=== PATIENT | male | born 1955 | race Caucasian/White ===

== ENCOUNTER 2020-01-08 13:08 | Inpatient (IN) | payer OTHER ==
--- NOTE | 2020-01-08 13:55 | BHS.RME ---
Substance Use & Tx History - Substance Use History Alcohol Substance amount: 2 pints bacardi Frequency of use: Daily Substance route: Oral Date of Last Use: 01/08/20 Marijuana/Hashish Substance amount: 1 joint Frequency of use: Daily Substance route: Smoking Date of Last Use: 01/07/20 Nicotine Substance amount: 1/2 pack Frequency of use: Daily Substance route: Smoking Date of Last Use: 01/08/20 Physical/Psych/Mental Status - Behavior General Behavior: Increased activity (restlessness, agitation) Eye Contact: Normal - Cooperativeness Cooperativeness: Cooperative - Thinking Thought Processes: Tight, Logical, Goal Directed Thought content: Future oriented - Physical Health Problems Is patient presently having any pain?: No Does patient presently have any injuries (include location): No Does patient currently have a fever: No Is patient : No CIWA Nausea/Vomitin-No Nausea/No Vomiting Muscle Tremors: 1-None Visible, but [place] Anxiety: 4-Mod. Anxious/Guarded Agitation: 3 Paroxysmal Sweats: No Perspiration Orientation: 1-Uncertain about Date Tacttile Disturbances: 0-None Auditory Disturbances: 0-None Visual Disturbances: 0-None Headache: 3-Moderate CIWA-Ar Total Score: 12
--- NOTE | 2020-01-08 16:06 | HP ---
CIWA Score Nausea/Vomitin-No Nausea/No Vomiting Muscle Tremors: 1-None Visible, but [place] Anxiety: 4-Mod. Anxious/Guarded Agitation: 3 Paroxysmal Sweats: No Perspiration Orientation: 1-Uncertain about Date Tacttile Disturbances: 0-None Auditory Disturbances: 0-None Visual Disturbances: 0-None Headache: 3-Moderate CIWA-Ar Total Score: 12 - Admission Criteria OASAS Guidelines: Admission for Medically Managed Detox: Requires at least one of the followin. CIWA greater than 12 2. Seizures within the past 24 hours 3. Delirium tremens within the past 24 hours 4. Hallucinations within the past 24 hours 5. Acute intervention needed for co occurring medical disorder 6. Acute intervention needed for co occurring psychiatric disorder 7. Severe withdrawal that cannot be handled at a lower level of care (continued vomiting, continued diarrhea, abnormal vital signs) requiring intravenous medication and/or fluids 8. Admitting History and Physical - Admission History of Present Illness: Patient is a 64 y.o. M PMHx HTN, rectal CA, asthma Presenting to [facility] for detox. Patient was examined in the room in no acute distress. 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 Pt. also uses marijuana 1 joint per day and nicotine 1/2 pack a day. 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 No: Hyperlipdemia - Past Surgical History Past Surgical History: Yes: Joint Replacement (R total knee,) - Smoking History Smoking history: Current every day smoker Have you smoked in the past 12 months: Yes Aproximately how many cigarettes per day: 10 - Alcohol/Substance Use Hx Alcohol Use: Yes Number of Drinks Daily: 2 History of Substance Use: reports: Marijuana - Social History Usual Living Arrangement: Yes: Alone ADL: Independent History of Recent Travel: No Admission ROS S - HPI Allergies/Adverse Reactions: Allergies Allergy/AdvReac Type Severity Reaction Status Date / Time No Known Allergies Allergy Verified 01/09/20 15:30 Exam Limitations: No Limitations - Ebola screening Have you traveled outside of the country in the last 21 days: No Have you had contact with anyone from an Ebola affected area: No Have you been sick,other than usual withdrawal symptoms: No Do you have a fever: No - Review of Systems Constitutional: No Symptoms Reported EENT: denies: Blurred Vision, Double Vision Respiratory: reports: SOB with Exertion. denies: Cough, Shortness of Breath Cardiac: denies: Chest Pain, Lightheadedness GI: reports: Constipated. denies: Diarrhea, Nausea, Vomiting Integumentary: reports: Rash Psychiatric: reports: No Sypmtoms Reported, Judgement Intact, Mood/Affect Appropiate, Orientated x3 Patient History - Smoking Cessation Smoking history: Current every day smoker Hx Chewing Tobacco Use: No Initiated information on smoking cessation: Yes 'Breaking Loose' booklet given: 01/08/20 - Substances abused Alcohol Substance route: Oral Frequency: Daily Amount used: 2 PINTS RUM Age of first use: 8 Date of last use: 01/08/20 Marijuana/Hashish Substance route: Smoking Frequency: Daily Amount used: 1 JOINT Age of first use: 13 Date of last use: 01/07/20 Admission Physical Exam [facility] Physical General Appearance: Yes: Within Normal Limits, No Apparent Distress, Nourished, Appropriately Dressed Respiratory: Yes: Within Normal Limits, Chest Non-Tender, Lungs Clear, Normal Breath Sounds, No Respiratory Distress, No Accessory Muscle Use Cardiology: Yes: Within Normal Limits, Regular Rhythm, Regular Rate Abdominal: Yes: Within Normal Limits, Normal Bowel Sounds, Non Tender, Soft Extremities: Yes: Within Normal Limits, Normal Capillary Refill, Normal Inspection, Non-Tender Neurological: Yes: Within Normal Limits, Fully Oriented, Alert, Normal Mood/Affect, Normal Response Integumentary: Yes: Within Normal Limits, Normal Color - Diagnostic (1) Alcohol abuse Current Visit: Yes Status: Acute (2) Alcohol abuse with alcohol-induced anxiety disorder Current Visit: Yes Status: Acute (3) Hypertension Current Visit: Yes Status: Acute (4) Asthma Current Visit: Yes Status: Acute Cleared for Admission [facility] - Detox or Rehab B[facility] Level of Care: Medically Managed Detox Regimen/Protocol: Librium, Suboxone Breathalyzer - Breathalyzer Breathalyzer: 0 Vital Signs - Vital Signs Vital signs refused: No Urine Drug Screen - Test Device Lot number: [id number] Expiration date: 12/14/21 - Control Is test valid?: Yes - Results Drug screen NEGATIVE: No Urine drug screen results: THC-Marijuana, BUP-Suboxone Inpatient Rehab Admission - Rehab Decision to Admit Inpatient rehab admission?: No
[2020-01-08 16:18] VITALS: BMI 24.6
[2020-01-08] MEDS ORDERED: MAG HYDROX/AL HYDROX/SIMETH 30 ML UNIT-DOSE CUP PO PRN (16:20)
[2020-01-08] MEDS ORDERED: IBUPROFEN 400 MG TABLET (FP) PO PRN (16:20)
[2020-01-08] MEDS ORDERED: MENTHOL/PHENOL 1 EACH UD MM PRN (16:20)
[2020-01-08] MEDS ORDERED: NICOTINE POLACRILEX 2 MG GUM BUC PRN (16:20)
[2020-01-08] MEDS ORDERED: ACETAMINOPHEN 325 MG TABLET (FP) PO PRN ×2 (16:20)
[2020-01-08] MEDS ORDERED: chlordiazePOXIDE HCL 25 MG CAPSULE PO PRN (16:20)
[2020-01-08] MEDS ORDERED: METHOCARBAMOL 500 MG TABLET PO PRN (16:20)
[2020-01-08] MEDS ORDERED: MAGNESIUM CITRATE 300 ML BOTTLE PO PRN (16:20)
[2020-01-08] MEDS ORDERED: BISMUTH SUBSALICYLATE 524 MG/30 ML UD PO PRN (16:20)
[2020-01-08] MEDS ORDERED: MAGNESIUM HYDROX 2400MG/30ML ORAL SUSPENSION 30 ML CUP PO PRN (16:20)
[2020-01-08] MEDS ORDERED: ACETAMINOPHEN 500 MG TABLET (FP) PO PRN (16:24)
[2020-01-08] MEDS ORDERED: ALBUTEROL SO4 HFA INHALER IH PRN (16:24)
[2020-01-08] MEDS ORDERED: ONDANSETRON *ODT* 4 MG TABLET SL ONE (17:00)
[2020-01-08] MEDS: chlordiazePOXIDE HCL 25 MG CAPSULE PO SCH ×2 (17:55→22:25)
[2020-01-08] MEDS: hydrOXYzine PAMOATE 25 MG CAPSULE (FP) PO SCH ×2 (18:00→22:25)
[2020-01-08] MEDS: MELATONIN 5 MG TABLETS PO SCH (22:23)
[2020-01-08] MEDS: THIAMINE HCL 100 MG TABLET (FP) PO SCH (22:23)
[2020-01-08] MEDS: traZODone HCL 50 MG TABLET (FP) PO SCH (22:23)
[2020-01-08] MEDS: BUDESONIDE/FORMETEROL FUMARATE 80/4.5 mcg INHALER IH SCH (22:24)
[2020-01-08] MEDS: ARTIFICIAL TEARS (POLYVINYL ALCOHOL) OPTH DROPS OU SCH (22:28)
[2020-01-09] MEDS: hydrOXYzine PAMOATE 25 MG CAPSULE (FP) PO SCH ×5 (05:41→23:26)
[2020-01-09] MEDS: chlordiazePOXIDE HCL 25 MG CAPSULE PO SCH ×4 (05:41→23:26)
--- NOTE | 2020-01-09 09:50 | PN ---
S CIWA - CIWA Score Nausea/Vomitin-No Nausea/No Vomiting Muscle Tremors: 2 Anxiety: 3 Agitation: 0-Normal Activity Paroxysmal Sweats: 3 Orientation: 0-Oriented Tacttile Disturbances: 0-None Auditory Disturbances: 0-None Visual Disturbances: 0-None Headache: 2-Mild CIWA-Ar Total Score: 10 BHS Progress Note (SOAP) Subjective: c/o headache, anxiety, sweats, and shakes. Objective: 01/09/20 09:49 Vital Signs 01/09/20 01/09/20 06:59 08:52 Temperature 98.2 F 96.8 F L Pulse Rate 81 76 Respiratory 16 18 Rate Blood Pressure 141/77 125/75 O2 Sat by Pulse 93 L Oximetry (%) Labs pending. Assessment: 01/09/20 09:50 AOX3, in no acute respiratory distress. Full ROM, ambulating in the unit. Withdrawal symptoms. Plan: continue detox.
--- NOTE | 2020-01-09 10:34 | CONSULT ---
[facility] Psychiatric Consult - Data Date of interview: 01/09/20 Admission source: [facility] Identifying data: First visit to [facility] and admission to [address] [place] [address] for this 64 y/o male self-referred for detoxification treatment. YOLANDA issues : alcohol, cannabis, opioid, nicotine. Patient is single, no dependents, domiciled, unemployed and suppported on his halfway benefits. Substance Abuse History: Discussed with the patient. YOLANDA profile as follows : Substance Use History. Alcohol. Substance amount: 2 pints bacardi. Frequency of use: Daily. Substance route: Oral. Date of Last Use: 01/08/20. Marijuana/Hashish. Substance amount: 1 joint. Frequency of use: Daily. Substance route: Smoking. Date of Last Use: 01/07/20. Nicotine. Substance amount: 1/2 pack. Frequency of use: Daily. Substance route: Smoking. Date of Last Use: 01/08/20. Limitations to Obtaining History: No Limitations. Substances abused. Alcohol. Substance route: Oral. Frequency: Daily. Amount used: 2 PINTS RUM. Age of first use: 8. Date of last use: 01/08/20. Marijuana/Hashish. Substance route: Smoking. Frequency: Daily. Amount used: 1 JOINT. Age of first use: 13. Date of last use: 01/07/20. Medical History: Medical profile is remarkable for bronchial asthma, dyslipidemia, hypertension, antecedent of multiple surgeries : total knee replacement (right) + past intervention for peptic ulcer disease (self-report) + colorectal cancer (surgery done four years ago at [facility]). No known allergies. Psychiatric History: Patient denies history of psychiatric hospitalizations. He has beeen diagnosed with MDD and he reports to the [facility] [place] mental health clinic for OPD care. Mr Vides is currently on suboxone maintenance + lexapro. Patient denies history of suicide attempts. Physical/Sexual Abuse/Trauma History: Patient denies history of abuse. Additional Comment: Urine drug screen results: THC-Marijuana, BUP-Suboxone. Noted. Mental Status Exam - Mental Status Exam Alert and Oriented to: Time, Place, Person Cognitive Function: Good Patient Appearance: Well Groomed Mood: Nervous, Hopeful Affect: Appropriate, Normal Range Patient Behavior: Fatigued, Appropriate, Cooperative Speech Pattern: Clear, Appropriate Voice Loudness: Normal Thought Process: Intact, Goal Oriented Thought Disorder: Not Present Hallucinations: Denies Suicidal Ideation: Denies Homicidal Ideation: Denies Insight/Judgement: Fair Sleep: Poorly, Difficulty falling asleep Appetite: Good Gait/Station: Normal Psychiatric Findings - Problem List ([place] 1, 2,3) (1) Alcohol use disorder Current Visit: Yes Status: Chronic (2) Opioid dependence on agonist therapy Current Visit: Yes Status: Chronic (3) Marijuana dependence Current Visit: Yes Status: Chronic (4) Nicotine dependence Current Visit: Yes Status: Chronic (5) History of depression Current Visit: Yes Status: Chronic (6) Substance induced mood disorder Current Visit: Yes Status: Suspected (7) Insomnia Current Visit: Yes Status: Chronic - Initial Treatment Plan Initial Treatment Plan: Psychoeducation. Sleep hygiene. Support. Detoxification in progress. Resumed on admission, by [facility] medical providers : trazodone 50 mg po hs + lexapro 20 mg po daily. Side effects/benefits of these molecules are revisited with the patient (in this interview). Mr Vides grants consent (verbal) to MD. Vergara.
[2020-01-09] MEDS: ARTIFICIAL TEARS (POLYVINYL ALCOHOL) OPTH DROPS OU SCH ×2 (10:49→23:25)
[2020-01-09] MEDS: PRENATAL VITAMINS W/ FOLIC ACID TABLET (FP) PO SCH (10:50)
[2020-01-09] MEDS: amLODIPine BESYLATE 10 MG TABLET (FP) PO SCH (10:50)
[2020-01-09] MEDS: NICOTINE 7 MG/24 HOURS TOPICAL PATCH TD SCH (10:50)
[2020-01-09] MEDS: BUDESONIDE/FORMETEROL FUMARATE 80/4.5 mcg INHALER IH SCH ×2 (10:50→23:26)
[2020-01-09] MEDS: ESCITALOPRAM OXALATE 10 MG TABLET PO SCH (10:50)
[2020-01-09] MEDS: BUPRENORPHINE/NALOXONE 8 MG/2 MG FILM PACKET SL SCH (10:50)
[2020-01-09 12:28] LABS: HEMATOCRIT 37.8 % (35.4-49); HEMOGLOBIN 12.8 GM/dL (11.7-16.9); MCHC 33.7 g/dl (32.0-35.9); MEAN CELL VOLUME 103.7 fl (80-96); PLATELET COUNT 64 K/MM3 (134-434); RBC 3.65 M/mm3 (4.00-5.60); RDW 12.6 % (11.9-15.9); WHITE BLOOD COUNT 4.5 K/mm3 (4.0-10.0)
[2020-01-09 12:40] LABS: ALBUMIN 2.9 g/dl (3.4-5.0); BLOOD UREA NITROGEN 11.1 mg/dL (7-18); CALCIUM 8.9 mg/dL (8.5-10.1); CREATININE 0.8 mg/dL (0.55-1.3); POTASSIUM 3.8 mmol/L (3.5-5.1); TOT PROT 7.5 g/dl (6.4-8.2)
--- NOTE | 2020-01-09 14:40 | PN ---
[facility] Progress Note Note: I was called to see this 64year old male with serum glucose of 412mg/dl. Pt was seen at bedside with c/o weakness. Denies any sob, dry mouth, or n/v at the moment. BGM is 537mg/dl. Pt states, he has no history of diabetes. Pt will benefit from iv hydration and further evaluation of hyperglycemia. Pt is sent to [facility] ED for evaluation. Verbal report given to Dr. Eubanks.
[2020-01-09] MEDS: traZODone HCL 50 MG TABLET (FP) PO SCH (23:26)
[2020-01-09] MEDS: THIAMINE HCL 100 MG TABLET (FP) PO SCH (23:26)
[2020-01-09] MEDS: MELATONIN 5 MG TABLETS PO SCH (23:26)
--- NOTE | 2020-01-09 23:50 | PN ---
[facility] Progress Note Note: Patient was received from Er where he was evaluated for elevated blood sugar and was cleared to continue detox. As per Dr. Prince Robin, patient is to initiate Metformin 500mg BID. Vital Signs Temperature 98.6 F 01/09/20 23:33 Pulse Rate 77 01/09/20 23:33 Respiratory Rate 18 01/09/20 23:33 Blood Pressure 150/81 01/09/20 23:33 O2 Sat by Pulse Oximetry (%) 95 01/09/20 23:33 Laboratory Last Values WBC 4.5 K/mm3 (4.0-10.0) 01/09/20 07:50 RBC 3.65 M/mm3 (4.00-5.60) L 01/09/20 07:50 Hgb 12.8 GM/dL (11.7-16.9) 01/09/20 07:50 Hct 37.8 % (35.4-49) 01/09/20 07:50 MCV 103.7 fl (80-96) H 01/09/20 07:50 MCH 35.0 pg (25.7-33.7) H 01/09/20 07:50 MCHC 33.7 g/dl (32.0-35.9) 01/09/20 07:50 RDW 12.6 % (11.9-15.9) 01/09/20 07:50 Plt Count 64 K/MM3 (134-434) L 01/09/20 07:50 MPV 10.0 fl (7.5-11.1) 01/09/20 07:50 Sodium 136 mmol/L (136-145) 01/09/20 07:50 Potassium 3.8 mmol/L (3.5-5.1) 01/09/20 07:50 Chloride 101 mmol/L (98-107) 01/09/20 07:50 Carbon Dioxide 30 mmol/L (21-32) 01/09/20 07:50 Anion Gap 6 MMOL/L (8-16) L 01/09/20 07:50 BUN 11.1 mg/dL (7-18) 01/09/20 07:50 Creatinine 0.8 mg/dL (0.55-1.3) 01/09/20 07:50 Est GFR (CKD-EPI)AfAm 107.89 01/09/20 07:50 Est GFR (CKD-EPI)NonAf 93.09 01/09/20 07:50 POC Glucometer 537 UNITS (80-120) 01/09/20 14:09 Random Glucose 412 mg/dL (74-106) H* 01/09/20 07:50 Calcium 8.9 mg/dL (8.5-10.1) 01/09/20 07:50 Total Bilirubin 1.0 mg/dL (0.2-1) 01/09/20 07:50 AST 105 U/L (15-37) H 01/09/20 07:50 ALT 67 U/L (13-61) H 01/09/20 07:50 Alkaline Phosphatase 275 U/L (45-117) H 01/09/20 07:50 Total Protein 7.5 g/dl (6.4-8.2) 01/09/20 07:50 Albumin 2.9 g/dl (3.4-5.0) L 01/09/20 07:50 Syphilis Serology Reactive (NONREACTIVE) A* 01/09/20 07:50 RPR Titer Reactive 1:2 (NONREACTIVE) H 01/09/20 07:50 Action: Initiate Metformin 500mg BID Continue to monitor blood sugar
[2020-01-10] MEDS ORDERED: INSULIN (NOVOLOG) ASPART 100 UNITS/ML 10ML VIAL SQ ONE (01:08)
[2020-01-10] MEDS: hydrOXYzine PAMOATE 25 MG CAPSULE (FP) PO SCH ×5 (05:52→22:23)
[2020-01-10] MEDS: chlordiazePOXIDE HCL 25 MG CAPSULE PO SCH ×4 (05:53→22:23)
[2020-01-10] MEDS: metFORMIN HCL 500 MG TABLET (FP) PO SCH ×2 (07:23→18:00)
[2020-01-10] MEDS: BUDESONIDE/FORMETEROL FUMARATE 80/4.5 mcg INHALER IH SCH ×2 (10:31→22:27)
[2020-01-10] MEDS: PRENATAL VITAMINS W/ FOLIC ACID TABLET (FP) PO SCH (10:32)
[2020-01-10] MEDS: ESCITALOPRAM OXALATE 10 MG TABLET PO SCH (10:32)
[2020-01-10] MEDS: amLODIPine BESYLATE 10 MG TABLET (FP) PO SCH (10:32)
[2020-01-10] MEDS: ARTIFICIAL TEARS (POLYVINYL ALCOHOL) OPTH DROPS OU SCH ×2 (10:32→22:28)
[2020-01-10] MEDS: BUPRENORPHINE/NALOXONE 8 MG/2 MG FILM PACKET SL SCH (10:33)
[2020-01-10] MEDS: NICOTINE 7 MG/24 HOURS TOPICAL PATCH TD SCH (10:33)
--- NOTE | 2020-01-10 11:38 | PN ---
[facility] CIWA - CIWA Score Nausea/Vomitin-Mild Nausea/No Vomiting Muscle Tremors: 2 Anxiety: 2 Agitation: 0-Normal Activity Paroxysmal Sweats: 1-Minimal Palms Moist Orientation: 0-Oriented Tacttile Disturbances: 1-Very Mild Itch/Numbness Auditory Disturbances: 0-None Visual Disturbances: 2-Mild Sensitivity Headache: 0-None Present CIWA-Ar Total Score: 9 S Progress Note (SOAP) Subjective: 64 years old male was admitted on 01/08/20 for alcohol withdrawal sx management treating with librium detox regiment first bulan's admission mr pitts denies history of glucose elevation transferred to ER and return with metformin 500mg po bid Objective: 01/10/20 11:39 Vital Signs - 24 hr 01/09/20 01/09/20 01/10/20 12:48 23:33 05:48 Temperature 98.0 F 98.6 F 98.3 F Pulse Rate 68 77 79 Respiratory 18 18 18 Rate Blood Pressure 124/68 150/81 150/79 O2 Sat by Pulse 95 95 94 L Oximetry (%) 01/10/20 08:36 Temperature 98.6 F Pulse Rate 97 H Respiratory 18 Rate Blood Pressure 122/73 O2 Sat by Pulse Oximetry (%) Laboratory Tests 01/09/20 01/09/20 01/09/20 07:50 07:50 07:50 WBC 4.5 RBC 3.65 L Hgb 12.8 Hct 37.8 MCV 103.7 H MCH 35.0 H MCHC 33.7 RDW 12.6 Plt Count 64 L MPV 10.0 Sodium 136 Potassium 3.8 Chloride 101 Carbon Dioxide 30 Anion Gap 6 L BUN 11.1 Creatinine 0.8 Est GFR (CKD-EPI)AfAm 107.89 Est GFR (CKD-EPI)NonAf 93.09 POC Glucometer Random Glucose 412 H* Hemoglobin A1c % Calcium 8.9 Total Bilirubin 1.0 AST 105 H ALT 67 H Alkaline Phosphatase 275 H Total Protein 7.5 Albumin 2.9 L Syphilis Serology Reactive A* RPR Titer 01/09/20 01/09/20 01/10/20 07:50 14:09 00:56 WBC RBC Hgb Hct MCV MCH MCHC RDW Plt Count MPV Sodium Potassium Chloride Carbon Dioxide Anion Gap BUN Creatinine Est GFR (CKD-EPI)AfAm Est GFR (CKD-EPI)NonAf POC Glucometer 537 379 Random Glucose Hemoglobin A1c % Calcium Total Bilirubin AST ALT Alkaline Phosphatase Total Protein Albumin Syphilis Serology RPR Titer Reactive 1:2 H 01/10/20 01/10/20 05:55 06:00 WBC RBC Hgb Hct MCV MCH MCHC RDW Plt Count MPV Sodium Potassium Chloride Carbon Dioxide Anion Gap BUN Creatinine Est GFR (CKD-EPI)AfAm Est GFR (CKD-EPI)NonAf POC Glucometer 373 Random Glucose Hemoglobin A1c % 9.5 H Calcium Total Bilirubin AST ALT Alkaline Phosphatase Total Protein Albumin Syphilis Serology RPR Titer 01/10/20 11:40 a1c 9.5 retirement glucose elevation continue metformin with insulin bgm coverage 01/10/20 11:41 phosphatase elevation mbi 24.6 glucerna tid 01/10/20 11:45 01/10/20 11:47 01/10/20 11:49 syphilis contacted treated Assessment: 01/10/20 11:47 alcohol withdrawal 01/10/20 11:48 diabetes II insulin dependent Plan: librium regiment metformin + bgm with insulin coverage
--- NOTE | 2020-01-10 12:01 | EKG ---
Test Reason : Blood Pressure : / mmHG Vent. Rate : 064 BPM Atrial Rate : 064 BPM P-R Int : 190 ms QRS Dur : 102 ms QT Int : 452 ms P-R-T Axes : 026 022 014 degrees QTc Int : 466 ms NORMAL SINUS RHYTHM NONSPECIFIC INTRAVENTRICULAR CONDUCTION DEFECT NO PREVIOUS ECGS AVAILABLE Confirmed by EDMUNDO HARRIS MD ([id number]) on 01/10/2020 12:01:27 PM Referred By: Confirmed By:EDMUNDO HARRIS MD
[2020-01-10] MEDS: INSULIN SLIDING SCALE (NOVOLOG) 1 VIAL SQ SCH (18:00)
[2020-01-10] MEDS: THIAMINE HCL 100 MG TABLET (FP) PO SCH (22:23)
[2020-01-10] MEDS: traZODone HCL 50 MG TABLET (FP) PO SCH (22:23)
[2020-01-10] MEDS: MELATONIN 5 MG TABLETS PO SCH (22:23)
[2020-01-11] MEDS ORDERED: chlordiazePOXIDE HCL 10 MG CAPSULE PO PRN
[2020-01-11] MEDS: chlordiazePOXIDE HCL 10 MG CAPSULE PO SCH ×4 (05:33→22:29)
[2020-01-11] MEDS: hydrOXYzine PAMOATE 25 MG CAPSULE (FP) PO SCH ×5 (05:33→22:29)
[2020-01-11] MEDS: metFORMIN HCL 500 MG TABLET (FP) PO SCH ×2 (06:10→17:22)
[2020-01-11] MEDS: INSULIN SLIDING SCALE (NOVOLOG) 1 VIAL SQ SCH ×2 (07:02→17:22)
[2020-01-11] MEDS: PRENATAL VITAMINS W/ FOLIC ACID TABLET (FP) PO SCH (10:17)
[2020-01-11] MEDS: ARTIFICIAL TEARS (POLYVINYL ALCOHOL) OPTH DROPS OU SCH ×2 (10:17→22:29)
[2020-01-11] MEDS: BUDESONIDE/FORMETEROL FUMARATE 80/4.5 mcg INHALER IH SCH ×2 (10:17→22:29)
[2020-01-11] MEDS: amLODIPine BESYLATE 10 MG TABLET (FP) PO SCH (10:18)
[2020-01-11] MEDS: ESCITALOPRAM OXALATE 10 MG TABLET PO SCH (10:18)
[2020-01-11] MEDS: BUPRENORPHINE/NALOXONE 8 MG/2 MG FILM PACKET SL SCH (10:19)
[2020-01-11] MEDS: NICOTINE 7 MG/24 HOURS TOPICAL PATCH TD SCH (10:19)
--- NOTE | 2020-01-11 13:00 | PN ---
S CIWA - CIWA Score Nausea/Vomitin-Mild Nausea/No Vomiting Muscle Tremors: 1-None Visible, but [place] Anxiety: 1-Mildly Anxious Agitation: 1-Slight > Activity Paroxysmal Sweats: 1-Minimal Palms Moist Orientation: 0-Oriented Tacttile Disturbances: 0-None Auditory Disturbances: 0-None Visual Disturbances: 1-Very Mild Sensitivity Headache: 0-None Present CIWA-Ar Total Score: 6 BHS Progress Note (SOAP) Subjective: 64 years old male was admitted on 01/08/20 for alcohol withdrawal sx management [facility]r [facility] that elevation of hgba1c of 9.5 indicates long period of glucose serum elevation discussing risks of uncontrolled elevated glucose strong recommend mr pitts to continue glucose control at [facility] Objective: 01/11/20 13:08 Vital Signs - 24 hr 01/10/20 01/10/20 01/11/20 16:56 20:39 05:28 Temperature 97.4 F L 98.2 F 97.8 F Pulse Rate 64 80 67 Respiratory 18 18 17 Rate Blood Pressure 126/77 132/71 139/81 O2 Sat by Pulse 95 96 Oximetry (%) 01/11/20 08:45 Temperature 97.5 F L Pulse Rate 79 Respiratory 18 Rate Blood Pressure 111/69 O2 Sat by Pulse Oximetry (%) Laboratory Tests 01/08/20 01/09/20 01/09/20 16:45 07:50 07:50 WBC 4.5 RBC 3.65 L Hgb 12.8 Hct 37.8 MCV 103.7 H MCH 35.0 H MCHC 33.7 RDW 12.6 Plt Count 64 L MPV 10.0 Sodium Potassium Chloride Carbon Dioxide Anion Gap BUN Creatinine Est GFR (CKD-EPI)AfAm Est GFR (CKD-EPI)NonAf POC Glucometer Random Glucose Hemoglobin A1c % Calcium Total Bilirubin AST ALT Alkaline Phosphatase Total Protein Albumin Syphilis Serology Reactive A* RPR Titer COVID-19 (NABIL) Not detected 01/09/20 01/09/20 01/09/20 07:50 07:50 14:09 WBC RBC Hgb Hct MCV MCH MCHC RDW Plt Count MPV Sodium 136 Potassium 3.8 Chloride 101 Carbon Dioxide 30 Anion Gap 6 L BUN 11.1 Creatinine 0.8 Est GFR (CKD-EPI)AfAm 107.89 Est GFR (CKD-EPI)NonAf 93.09 POC Glucometer 537 Random Glucose 412 H* Hemoglobin A1c % Calcium 8.9 Total Bilirubin 1.0 AST 105 H ALT 67 H Alkaline Phosphatase 275 H Total Protein 7.5 Albumin 2.9 L Syphilis Serology RPR Titer Reactive 1:2 H COVID-19 (NABIL) 01/10/20 01/10/20 01/10/20 00:56 05:55 06:00 WBC RBC Hgb Hct MCV MCH MCHC RDW Plt Count MPV Sodium Potassium Chloride Carbon Dioxide Anion Gap BUN Creatinine Est GFR (CKD-EPI)AfAm Est GFR (CKD-EPI)NonAf POC Glucometer 379 373 Random Glucose Hemoglobin A1c % 9.5 H Calcium Total Bilirubin AST ALT Alkaline Phosphatase Total Protein Albumin Syphilis Serology RPR Titer COVID-19 (NABIL) 01/10/20 01/10/20 01/11/20 16:27 16:29 05:35 WBC RBC Hgb Hct MCV MCH MCHC RDW Plt Count MPV Sodium Potassium Chloride Carbon Dioxide Anion Gap BUN Creatinine Est GFR (CKD-EPI)AfAm Est GFR (CKD-EPI)NonAf POC Glucometer 462 451 368 Random Glucose Hemoglobin A1c % Calcium Total Bilirubin AST ALT Alkaline Phosphatase Total Protein Albumin Syphilis Serology RPR Titer COVID-19 (NABIL) lab noted 01/11/20 13:10 Assessment: 01/11/20 13:10 alcohol withdrawal Plan: librium regiment
[2020-01-11] MEDS: THIAMINE HCL 100 MG TABLET (FP) PO SCH (22:29)
[2020-01-11] MEDS: MELATONIN 5 MG TABLETS PO SCH (22:29)
[2020-01-11] MEDS: traZODone HCL 50 MG TABLET (FP) PO SCH (22:29)
[2020-01-12] MEDS ORDERED: chlordiazePOXIDE HCL 10 MG CAPSULE PO SCH (05:00)
[2020-01-12] MEDS: hydrOXYzine PAMOATE 25 MG CAPSULE (FP) PO SCH ×2 (05:26→10:17)
[2020-01-12] MEDS: metFORMIN HCL 500 MG TABLET (FP) PO SCH (07:23)
[2020-01-12] MEDS: INSULIN SLIDING SCALE (NOVOLOG) 1 VIAL SQ SCH (07:24)
[2020-01-12 09:23] VITALS: BP 101/61; PULSE 85; TEMP 97.5
[2020-01-12] MEDS: amLODIPine BESYLATE 10 MG TABLET (FP) PO SCH (10:17)
[2020-01-12] MEDS: PRENATAL VITAMINS W/ FOLIC ACID TABLET (FP) PO SCH (10:17)
[2020-01-12] MEDS: NICOTINE 7 MG/24 HOURS TOPICAL PATCH TD SCH (10:17)
[2020-01-12] MEDS: ESCITALOPRAM OXALATE 10 MG TABLET PO SCH (10:17)
[2020-01-12] MEDS: BUPRENORPHINE/NALOXONE 8 MG/2 MG FILM PACKET SL SCH (10:17)
[2020-01-12] MEDS: ARTIFICIAL TEARS (POLYVINYL ALCOHOL) OPTH DROPS OU SCH (10:18)
[2020-01-12] MEDS: BUDESONIDE/FORMETEROL FUMARATE 80/4.5 mcg INHALER IH SCH (10:18)
--- NOTE | 2020-01-12 12:35 | DS ---
[facility] Detox Discharge Summary Admission Date: 01/08/20 Discharge Date: 01/12/20 - History Present History: Alcohol Dependence - Physical Exam Results Vital Signs: Vital Signs Temperature 97.5 F L 01/12/20 09:05 Pulse Rate 85 01/12/20 09:05 Respiratory Rate 18 01/12/20 09:05 Blood Pressure 101/61 01/12/20 09:05 O2 Sat by Pulse Oximetry (%) 99 01/12/20 06:27 - Treatment Hospital Course: Detox Protocol Followed, Detoxed Safely, Responded well, Discharged Condition Good, Rehab Referral Accepted - Medication Discharge Medications: Ambulatory Orders Acetaminophen [Tylenol .Extra-Strength -] 500 mg PO Q4H PRN 01/08/20 Albuterol Sulfate Inhaler - [Ventolin HFA Inhaler -] 2 inh PO Q4H PRN 01/08/20 Amlodipine Besylate [Norvasc -] 10 mg PO DAILY 01/08/20 Budesonide/Formoterol Fumarate [Budesonide-Formoterol 80-4.5] 10.2 gm IH BID 01/08/20 Buprenorphine HCl/Naloxone HCl [Buprenorp-Nalox 8-2 mg Sl Film] 2 each SL DAILY 01/08/20 Escitalopram Oxalate [Lexapro -] 20 mg PO DAILY 01/08/20 Multivitamin with Iron [Daily Castro with Iron] 1 each PO DAILY 01/08/20 Propylene Glycol [Systane Complete] 1.5 ml OP BID 01/08/20 traZODone HCL [Trazodone HCl] 50 mg PO HS 01/08/20 - AMA Did Patient Leave Against Medical Advice: No CIWA Score - CIWA Score Nausea/Vomitin-No Nausea/No Vomiting Muscle Tremors: 1-None Visible, but [place] Anxiety: 4-Mod. Anxious/Guarded Agitation: 3 Paroxysmal Sweats: No Perspiration Orientation: 1-Uncertain about Date Tacttile Disturbances: 0-None Auditory Disturbances: 0-None Visual Disturbances: 0-None Headache: 3-Moderate CIWA-Ar Total Score: 12
--- NOTE | 2020-01-12 12:36 | DS ---
[facility] Detox Discharge Summary Admission Date: 01/08/20 Discharge Date: 01/12/20 - History Present History: Alcohol Dependence Additional Comments: 64 years old male was admitted on 01/08/20 for alcohol withdrawal sx management treated with librium detox regiment seen by psychiatrist herbert badillo mr pitts prefers to go to rehab today that he feels much better today less tremor mild anxiety General Appearance: Yes: Within Normal Limits, No Apparent Distress, Nourished, Appropriately Dressed Respiratory: Yes: Within Normal Limits, Chest Non-Tender, Lungs Clear, Normal Breath Sounds, No Respiratory Distress, No Accessory Muscle Use Cardiology: Yes: Within Normal Limits, Regular Rhythm, Regular Rate Abdominal: Yes: Within Normal Limits, Normal Bowel Sounds, Non Tender, Soft Extremities: Yes: Within Normal Limits, Normal Capillary Refill, Normal Inspection, Non-Tender Neurological: Yes: Within Normal Limits, Fully Oriented, Alert, Normal Mood/Affect, Normal Response Integumentary: Yes: Within Normal Limits, Normal Color Pertinent Past History: time for discharge 52 minutes treatment team met with mr pitts to discuss the benefit of librium completion mr pitts first [facility] detox denies medical history of diabetes sent to ER for glucose elevation return with metformin 500 mg po bid continue bgm bid ac with insulin coverage bgm elevation as per hgba1c predicted none glucose management increase metformin to 1000mg po bid while in rehab - Physical Exam Results Vital Signs: Vital Signs Temperature 97.5 F L 01/12/20 09:05 Pulse Rate 85 01/12/20 09:05 Respiratory Rate 18 01/12/20 09:05 Blood Pressure 101/61 01/12/20 09:05 O2 Sat by Pulse Oximetry (%) 99 01/12/20 06:27 Pertinent Admission Physical Exam Findings: alcohol withdrawal Laboratory Tests 01/08/20 01/09/20 01/09/20 16:45 07:50 07:50 WBC 4.5 RBC 3.65 L Hgb 12.8 Hct 37.8 MCV 103.7 H MCH 35.0 H MCHC 33.7 RDW 12.6 Plt Count 64 L MPV 10.0 Sodium Potassium Chloride Carbon Dioxide Anion Gap BUN Creatinine Est GFR (CKD-EPI)AfAm Est GFR (CKD-EPI)NonAf POC Glucometer Random Glucose Hemoglobin A1c % Calcium Total Bilirubin AST ALT Alkaline Phosphatase Total Protein Albumin Syphilis Serology Reactive A* RPR Titer COVID-19 (NABIL) Not detected 01/09/20 01/09/20 01/09/20 07:50 07:50 14:09 WBC RBC Hgb Hct MCV MCH MCHC RDW Plt Count MPV Sodium 136 Potassium 3.8 Chloride 101 Carbon Dioxide 30 Anion Gap 6 L BUN 11.1 Creatinine 0.8 Est GFR (CKD-EPI)AfAm 107.89 Est GFR (CKD-EPI)NonAf 93.09 POC Glucometer 537 Random Glucose 412 H* Hemoglobin A1c % Calcium 8.9 Total Bilirubin 1.0 AST 105 H ALT 67 H Alkaline Phosphatase 275 H Total Protein 7.5 Albumin 2.9 L Syphilis Serology RPR Titer Reactive 1:2 H COVID-19 (NABIL) 01/10/20 01/10/20 01/10/20 00:56 05:55 06:00 WBC RBC Hgb Hct MCV MCH MCHC RDW Plt Count MPV Sodium Potassium Chloride Carbon Dioxide Anion Gap BUN Creatinine Est GFR (CKD-EPI)AfAm Est GFR (CKD-EPI)NonAf POC Glucometer 379 373 Random Glucose Hemoglobin A1c % 9.5 H Calcium Total Bilirubin AST ALT Alkaline Phosphatase Total Protein Albumin Syphilis Serology RPR Titer COVID-19 (NABIL) 01/10/20 01/10/20 01/11/20 16:27 16:29 05:35 WBC RBC Hgb Hct MCV MCH MCHC RDW Plt Count MPV Sodium Potassium Chloride Carbon Dioxide Anion Gap BUN Creatinine Est GFR (CKD-EPI)AfAm Est GFR (CKD-EPI)NonAf POC Glucometer 462 451 368 Random Glucose Hemoglobin A1c % Calcium Total Bilirubin AST ALT Alkaline Phosphatase Total Protein Albumin Syphilis Serology RPR Titer COVID-19 (NABIL) 01/11/20 01/12/20 16:24 05:25 WBC RBC Hgb Hct MCV MCH MCHC RDW Plt Count MPV Sodium Potassium Chloride Carbon Dioxide Anion Gap BUN Creatinine Est GFR (CKD-EPI)AfAm Est GFR (CKD-EPI)NonAf POC Glucometer 439 318 Random Glucose Hemoglobin A1c % Calcium Total Bilirubin AST ALT Alkaline Phosphatase Total Protein Albumin Syphilis Serology RPR Titer COVID-19 (NABIL) lab noted - Treatment Hospital Course: Detox Protocol Followed, Detoxed Safely, Responded well, Discharged Condition Good, Rehab Referral Accepted Patient has Accepted a Re[facility] Referral to: [facility] - Medication Discharge Medications: Ambulatory Orders Acetaminophen [Tylenol .Extra-Strength -] 500 mg PO Q4H PRN 01/08/20 Albuterol Sulfate Inhaler - [Ventolin HFA Inhaler -] 2 inh PO Q4H PRN 01/08/20 Amlodipine Besylate [Norvasc -] 10 mg PO DAILY 01/08/20 Budesonide/Formoterol Fumarate [Budesonide-Formoterol 80-4.5] 10.2 gm IH BID 01/08/20 Buprenorphine HCl/Naloxone HCl [Buprenorp-Nalox 8-2 mg Sl Film] 2 each SL DAILY 01/08/20 Escitalopram Oxalate [Lexapro -] 20 mg PO DAILY 01/08/20 Multivitamin with Iron [Daily [place] with Iron] 1 each PO DAILY 01/08/20 Propylene Glycol [Systane Complete] 1.5 ml OP BID 01/08/20 traZODone HCL [Trazodone HCl] 50 mg PO HS 01/08/20 - Diagnosis (1) Encounter for monitoring Suboxone maintenance therapy Current Visit: Yes Status: Chronic (2) Asthma Current Visit: Yes Status: Chronic Qualifiers: Asthma severity: mild Asthma persistence: intermittent Asthma complication type: with status asthmaticus Qualified Code(s): J45.22 - Mild intermittent asthma with status asthmaticus (3) Hypertension Current Visit: Yes Status: Chronic Qualifiers: Hypertension type: essential hypertension Qualified Code(s): I10 - Essential (primary) hypertension (4) Insulin dependent diabetes mellitus Current Visit: Yes Status: Chronic (5) Syphilis contact, treated Current Visit: Yes Status: Chronic (6) Alcohol use disorder Current Visit: Yes Status: Acute (7) Nicotine dependence Current Visit: Yes Status: Acute Qualifiers: Nicotine product type: cigarettes Substance use status: in withdrawal Qualified Code(s): F17.213 - Nicotine dependence, cigarettes, with withdrawal (8) Substance induced mood disorder Current Visit: Yes Status: Suspected - AMA Did Patient Leave Against Medical Advice: No CIWA Score - CIWA Score Nausea/Vomitin-No Nausea/No Vomiting Muscle Tremors: 1-None Visible, but [place] Anxiety: 1-Mildly Anxious Agitation: 1-Slight > Activity Paroxysmal Sweats: No Perspiration Orientation: 0-Oriented Tacttile Disturbances: 0-None Auditory Disturbances: 0-None Visual Disturbances: 0-None Headache: 0-None Present CIWA-Ar Total Score: 3
[2020-01-13] MEDS ORDERED: chlordiazePOXIDE HCL 10 MG CAPSULE PO ONE (05:00)
== END 2020-01-12 12:50 | disposition other institution (70) | DRG 897 ==
LOC: YASAS 13:08 → Y3N 16:34
PROVIDERS: ADMIT Allergy & Immunology; ATTEND Allergy & Immunology
PROC: HZ2ZZZZ Detoxification Services for Substance Abuse Treatment (ICD-10-PCS; principal; 2020-01-08)
DX: F10.230 Alcohol dependence with withdrawal, uncomplicated (principal); F11.20 Opioid dependence, uncomplicated; F33.9 Major depressive disorder, recurrent, unspecified; F12.20 Cannabis dependence, uncomplicated; F17.210 Nicotine dependence, cigarettes, uncomplicated; F10.280 Alcohol dependence with alcohol-induced anxiety disorder; F19.24 Other psychoactive substance dependence with psychoactive substance-induced mood disorder; I10 Essential (primary) hypertension; J45.909 Unspecified asthma, uncomplicated; E11.9 Type 2 diabetes mellitus without complications; Z79.4 Long term (current) use of insulin; Z96.651 Presence of right artificial knee joint; Z87.11 Personal history of peptic ulcer disease; Z51.81 Encounter for therapeutic drug level monitoring; Z79.899 Other long term (current) drug therapy; Z85.038 Personal history of other malignant neoplasm of large intestine; Z86.19 Personal history of other infectious and parasitic diseases
CPT/HCPCS: 36415; 80053; 82962; 83036; 85027; 86593; 86780; 93005; 93010; Q0162; U0003

== ENCOUNTER 2020-01-09 15:07 | Emergency (ER) | payer OTHER ==
--- NOTE | 2020-01-09 15:26 | PDOC ---
History of Present Illness - General Stated Complaint: BLOOD SUGAR PROBLEM Time Seen by Provider: 01/09/20 15:24 - History of Present Illness Initial Comments: 01/09/20 15:26 HPI: 64 y/o M with hx of HTN, rectal CA, asthma, remote prescription opiate abuse now on suboxone presenting from [facility] alcohol detox for hyperglycemia. Patient reports he has been having increased thirst and polyuria over the past year. Otherwise asymptomatic; denies fever, chills, abd pain, chest pain, SOB, n/v. PMHx: as noted above ROS: as noted SHx: + tobacco use; +1.5 pints daily alcohol use; no rec drugs Allergies: NKDA ROS: GENERAL/CONSTITUTIONAL: No fever or chills. HEAD, EYES, EARS, NOSE AND THROAT: No change in vision. No ear pain or discharge. No sore throat. CARDIOVASCULAR: No chest pain or shortness of breath RESPIRATORY: No cough, wheezing, or hemoptysis. GASTROINTESTINAL: No nausea, vomiting, diarrhea or constipation. GENITOURINARY: +increased change in urination. MUSCULOSKELETAL: No joint or muscle swelling or pain. No neck or back pain. SKIN: No rash NEUROLOGIC: No headache, vertigo, loss of consciousness, or change in strength/sensation. ENDOCRINE: No increased thirst. No abnormal weight change HEMATOLOGIC/LYMPHATIC: No anemia, easy bleeding, or history of blood clots. ALLERGIC/IMMUNOLOGIC: No hives or skin allergy. PE: GENERAL: Awake, alert, and fully oriented, no acute distress HEAD: No signs of trauma, normocephalic, atraumatic EYES: EOMI, sclera anicteric, conjunctiva clear ENT: Auricles normal inspection, hearing grossly normal, nares patent, oropharynx clear without exudates. dry mucosa NECK: Normal ROM, no lymphadenopathy LUNGS: No increased work of breathing, symmetrical chest rise, clear to auscultation bilaterally, no wheezes, crackles or rhonchi HEART: Regular rate, regular rhythm, normal S1 and S2, no murmur, peripheral pulses 2+ and equal bilaterally. ABDOMEN: Soft, nondistended, nontender. No guarding, no rebound. No masses. No CVAT MUSCULOSKELETAL: FROM NEUROLOGICAL: Cranial nerves II through XII grossly intact. Normal speech, stable gait, no focal sensorimotor deficits SKIN: Warm, Dry, normal turgor, no rashes or lesions noted Past History - Medical History Allergies/Adverse Reactions: Allergies Allergy/AdvReac Type Severity Reaction Status Date / Time No Known Allergies Allergy Verified 01/09/20 15:30 Home Medications: Ambulatory Orders Acetaminophen [Tylenol -] 500 mg PO Q4H PRN 01/08/20 Albuterol Sulfate Inhaler - [Ventolin Hfa Inhaler -] 2 inh PO Q4H PRN 01/08/20 Amlodipine Besylate [Norvasc -] 10 mg PO DAILY 01/08/20 Budesonide/Formoterol Fumarate [Budesonide-Formoterol 80-4.5] 10.2 gm IH BID 01/08/20 Buprenorphine HCl/Naloxone HCl [Buprenorp-Nalox 8-2 mg Sl Film] 2 each SL DAILY 01/08/20 Escitalopram Oxalate [Lexapro -] 20 mg PO DAILY 01/08/20 Multivitamin with Iron [Daily [place] with Iron] 1 each PO DAILY 01/08/20 Propylene Glycol [Systane Complete] 1.5 ml OP BID 01/08/20 traZODone HCL [Trazodone HCl] 50 mg PO HS 01/08/20 Asthma: Yes Cardiac Disorders: No COPD: No Diabetes: No GI Disorders: No Disorders: No HTN: Yes Kidney Stones: No Seizures: No - Surgical History Orthopedic Surgery: Yes (R knee replacement) - Reproductive History Testicular Surgery: No ED Treatment Course - LABORATORY CBC & Chemistry Diagram: 01/09/20 15:31 01/09/20 15:31 Medical Decision Making - Medical Decision Making 01/09/20 19:04 64 y/o M with hx of HTN, rectal CA, asthma, remote prescription opiate abuse now on suboxone presenting from [facility] alcohol detox for hyperglycemia with polyuria and incerased thrist over the past year. VSS, AF. Ruleout occult infection vs new onset DM -cbc, cmp, beta hydroxy, ua, A1c, card prof, ekg, cxr -2L ivf -reassess 01/09/20 19:05 alcohol pattern of LFTs elevated BGM 400-500s rpt Accucheck signed out to night team to followup BGM and DC to [facility] with 500mg BID metformin and will be re-evaluated by [facility] team; will call [facility] to notify them of new med regimen and will be seen by medical team in the coming days Discharge - Discharge Information Problems reviewed: Yes Clinical Impression/Diagnosis: Hyperglycemia - Follow up/Referral - Patient Discharge Instructions - Post Discharge Activity
[2020-01-09] MEDS ORDERED: SODIUM CHLORIDE 1,000 ML IV STA ×2 (15:28→17:14)
[2020-01-09 15:33] VITALS: BMI 24.7
[2020-01-09 16:09] LABS: BASO % 0.6 % (0-2.0); EOS % 1.3 % (0-4.5); HEMATOCRIT 40.1 % (35.4-49); HEMOGLOBIN 13.7 GM/dL (11.7-16.9); LYMPH % 22.3 % (8-40); MCH 35.8 pg (25.7-33.7); MCHC 34.1 g/dl (32.0-35.9); MEAN CELL VOLUME 104.9 fl (80-96); MEAN PLT VOLUME 10.3 fl (7.5-11.1); NEUT % 67.8 % (42.8-82.8); PLATELET COUNT 72 K/MM3 (134-434); RBC 3.82 M/mm3 (4.00-5.60); RDW 12.8 % (11.9-15.9); WHITE BLOOD COUNT 4.9 K/mm3 (4.0-10.0)
[2020-01-09 16:37] LABS: ALBUMIN 3.1 g/dl (3.4-5.0); ALK PHOS 293 U/L (45-117); ANION GAP 9 MMOL/L (8-16); BILIRUBIN,TOTAL 0.8 mg/dL (0.2-1); BLOOD UREA NITROGEN 11.4 mg/dL (7-18); CALCIUM 9.2 mg/dL (8.5-10.1); CHLORIDE 99 mmol/L (98-107); CO2 27 mmol/L (21-32); CREATININE 0.9 mg/dL (0.55-1.3); POTASSIUM 4.2 mmol/L (3.5-5.1); SGOT/AST 119 U/L (15-37); SGPT/ALT 73 U/L (13-61); SODIUM 135 mmol/L (136-145); TOT PROT 7.9 g/dl (6.4-8.2)
[2020-01-09 17:02] LABS: GLUCOSE,RANDOM 516 mg/dL (74-106)
--- NOTE | 2020-01-09 18:54 | PDOC ---
Documentation entered by Uma Asencio SCRIBE, acting as scribe for Luisito Eubanks MD. Luisito Eubanks MD: This documentation has been prepared by the Elif samayoa Xhesika, SCRIBE, under my direction and personally reviewed by me in its entirety. I confirm that the documentation accurately reflects all work, treatment, procedures, and medical decision making performed by me. Attending Attestation - Resident Resident Name: QuanJulio - ED Attending Attestation I have performed the following: I have examined & evaluated the patient, The case was reviewed & discussed with the resident, I agree w/resident's findings & plan, Exceptions are as noted - HPI HPI: 01/09/20 15:43 The patient is a 64 year old male with a significant PMH of HTN, rectal ca, asthma, and etoh/marijuana abuse who presents to the emergency department BIBA from [facility] for elevated blood sugar. Per [facility], patients BS was >500. Notes increased thrist/urination within the past year. no other complaints. denie sfever/chills, cp, sob, abd pain, diarrhea, dizziness/palpitations. Allergies: NKDA - Physicial Exam PE: 01/09/20 16:43 exam: GENERAL: The patient is somnolent but easily arousable, Nontoxic - in no acute distress. HEAD: Normocephalic, atraumatic. EYES: extraocular movements intact, sclera anicteric, conjunctiva clear. ENT: Normal voice, drymucous membranes. NECK: Normal range of motion, supple LUNGS: Breath sounds equal, clear to auscultation bilaterally. No wheezes, no rhonchi, no rales. HEART: Regular rate and rhythm, normal S1 and S2 without murmur, rub or gallop. ABDOMEN: Soft, nontender, No guarding, no rebound. No CVA tenderness EXTREMITIES: Normal range of motion, no edema. NEUROLOGICAL: No facial assymetry, Normal speech, PSYCH: Normal mood, normal affect. SKIN: Warm, Dry, normal turgor, - Medical Decision Making 01/09/20 16:43 64y no hx dm presents with hyperglycemia, sx of hyperglycemia in the past year will ro dka, metabolic derangements, occult infection fluids for hydration 01/09/20 19:00 labs reviewed elevate bgm no signs of dka dw medicine -r ecommends starting metformin 500mg BID, and checking bgm willl dc back to [facility] to continue detox Discharge - Discharge Information Problems reviewed: Yes Clinical Impression/Diagnosis: Hyperglycemia Condition: Good Disposition: HOME - Follow up/Referral - Patient Discharge Instructions Patient Printed Discharge Instructions: DI for Hyperglycemia -- Adult Additional Instructions: You were seen in the ED for complaints of high blood sugar. In the ED you were evaluated with blood work and chest Xray. Your results were high blood sugar. Chest xray was normal. There does not appear to be an acute need for immediate hospitalization. You are advised to follow up with your Primary Care Physician within 1 week. You will be prescribed 500mg Metformin twice daily for Diabetes. Return to the ED immediately if you experience passing out, lightheadedness, dizziness, confusion, chest pain, difficulty breathing, or abdominal pain. - Post Discharge Activity
--- NOTE | 2020-01-09 19:10 | PDOC ---
*Physical Exam - Vital Signs Last Vital Signs Temp Pulse Resp BP Pulse Ox 98.1 F 82 18 122/74 98 01/09/20 15:30 01/09/20 15:30 01/09/20 15:30 01/09/20 15:30 01/09/20 15:30 ED Treatment Course - LABORATORY CBC & Chemistry Diagram: 01/09/20 15:31 01/09/20 15:31 - ADDITIONAL ORDERS Additional order review: Laboratory Results 01/09/20 01/09/20 01/09/20 15:38 15:31 15:31 Sodium Potassium Chloride Carbon Dioxide Anion Gap BUN Creatinine Est GFR (CKD-EPI)AfAm Est GFR (CKD-EPI)NonAf POC Glucometer 475 Random Glucose Hemoglobin A1c % 9.4 H Calcium Total Bilirubin AST ALT Alkaline Phosphatase Creatine Kinase Troponin I Total Protein Albumin Beta-Hydroxybutyrate 2.2 01/09/20 15:31 Sodium 135 L Potassium 4.2 Chloride 99 Carbon Dioxide 27 Anion Gap 9 BUN 11.4 Creatinine 0.9 Est GFR (CKD-EPI)AfAm 102.79 Est GFR (CKD-EPI)NonAf 88.69 POC Glucometer Random Glucose 516 H* Hemoglobin A1c % Calcium 9.2 Total Bilirubin 0.8 AST 119 H ALT 73 H Alkaline Phosphatase 293 H Creatine Kinase 67 Troponin I < 0.02 Total Protein 7.9 Albumin 3.1 L Beta-Hydroxybutyrate 01/09/20 01/09/20 15:38 15:31 RBC 3.82 L MCV 104.9 H MCHC 34.1 RDW 12.8 MPV 10.3 Neutrophils % 67.8 Lymphocytes % 22.3 Monocytes % 8.0 Eosinophils % 1.3 Basophils % 0.6 POC Glucometer 475 - Medications Given in the ED: ED Medications Discontinued Medications Generic Name Dose Route Start Last Admin Trade Name Freq PRN Reason Stop Dose Admin Sodium Chloride 1,000 mls @ 1,000 mls/hr 01/09/20 15:28 01/09/20 15:57 Normal Saline - IV 01/09/20 16:27 1,000 mls/hr ASDIR STA Administration Sodium Chloride 1,000 mls @ 1,000 mls/hr 01/09/20 17:14 01/09/20 17:58 Normal Saline - IV 01/09/20 18:13 1,000 mls/hr ASDIR STA Administration Medical Decision Making - Medical Decision Making 01/09/20 19:04 64 y/o M with hx of HTN, rectal CA, asthma, remote prescription opiate abuse now on suboxone presenting from [facility] alcohol detox for hyperglycemia with polyuria and incerased thrist over the past year. VSS, AF. Evaluate for occult infection vs new onset DM -cbc, cmp, beta hydroxy, ua, A1c, card prof, ekg, cxr -2L ivf -reassess 01/09/20 19:05 -alcohol pattern of LFTs -elevated BGM 400-500s -signed out to night team to followup BGM and DC to [facility] with 500mg BID metformin and will be re-evaluated by [facility] team; will call [facility] to notify them of new med regimen and will be seen by medical team in the coming days 01/09/20 19:21 -sign out from day team -repeat BG 325, trending down, patient is asymptomatic and stable for discharge -bicarb 27, beta hydroxybutyrate wnl, anion gap 9 - not HHS or DKA -newly dx DM, HgA1c 9.4 -informed [facility] to start 500mg metformin BID, titrate up with PMD Discharge - Discharge Information Problems reviewed: Yes Clinical Impression/Diagnosis: Hyperglycemia Condition: Stable Disposition: TRANSFER ACUTE CARE/OTHER HOSP - Admission No - Follow up/Referral - Patient Discharge Instructions Patient Printed Discharge Instructions: DI for Hyperglycemia -- Adult Additional Instructions: You were seen in the ED for complaints of high blood sugar. In the ED you were evaluated with blood work and chest Xray. Your results were high blood sugar. Chest xray was normal. There does not appear to be an acute need for immediate hospitalization. You are advised to follow up with your Primary Care Physician within 1 week. You will be prescribed 500mg Metformin twice daily for Diabetes. Return to the ED immediately if you experience passing out, lightheadedness, dizziness, confusion, chest pain, difficulty breathing, or abdominal pain. - Post Discharge Activity
[2020-01-09 20:51] VITALS: BP 146/74; PULSE 80; TEMP 97.8
== END 2020-01-09 23:20 | disposition home or self-care (01) ==
LOC: JER 15:07
DX: E11.65 Type 2 diabetes mellitus with hyperglycemia (principal)
CPT/HCPCS: 36415; 71045-TC-FY; 80053; 82010; 82550; 82962; 83036; 84484; 85025; 99285-25

== ENCOUNTER 2020-01-12 13:20 | Inpatient (IN) | payer OTHER ==
--- NOTE | 2020-01-12 12:40 | HP ---
[facility] Rehab Assess/Revision - Admission History Admitted to Rehab from: [facility] Date of Admission to Rehab: 01/12/20 - Findings Detox History & Physical reviewed: Yes Concur with findings: Yes Comments/Additional Findings: transferred from detox to rehab admission as per [facility] Inpatient Rehab Admission - Rehab Decision to Admit Inpatient rehab admission?: Yes - Initial Determination Are CD services needed?: Yes Free of communicable disease: Yes Not in need of hospitalization: Yes - Rehab Admission Criteria Previous failed treatment: Yes Poor recovery environment: Yes Comorbidities: Yes Lacks judgement: Yes Patient is meeting Inpatient Rehab admission criteria:: Yes
[~2020-01-12 13:20] MED LIST: ALBUTEROL SO4 HFA INHALER IH PRN; LOPERAMIDE HCL 2 MG CAPSULE PO PRN; MAG HYDROX/AL HYDROX/SIMETH 30 ML UNIT-DOSE CUP PO PRN; MAGNESIUM CITRATE 300 ML BOTTLE PO PRN; MAGNESIUM HYDROX 2400MG/30ML ORAL SUSPENSION 30 ML CUP PO PRN; NICOTINE POLACRILEX 2 MG GUM BC PRN; P-EPHED 60MG/TRIPROLIDI 2.5MG TABLET PO PRN; guaiFENesin 200 MG/10 ML 10 ML UNIT-DOSE CUPS PO PRN
[2020-01-12] MEDS ORDERED: PNEUMOC 13-VAL CONJ-DIP CRM/PF 0.5 ML DISP.SYRIN IM ONE (14:00)
[2020-01-12] MEDS: ARTIFICIAL TEARS (POLYVINYL ALCOHOL) OPTH DROPS OU SCH ×2 (15:56→21:51)
[2020-01-12] MEDS: IBUPROFEN 400 MG TABLET (FP) PO PRN (16:10)
--- NOTE | 2020-01-12 16:35 | PN ---
Progress Note (short form) - Note Progress Note: Patient is a 64 y.o. M. PMHx alcohol abuse, PSHx B/l knee replacement. Patient had an unwitnessed fall after getting out of bed. Patient stated he had stood up, felt weakness in his legs and fell on his L side/buttocks. Patient reports no LOC and did not hit his head. Patient stated his L hip hurts but denies headache, dizziness, nausea, vomiting, blurry/double vision. Patient neurological exam showed sensation intact throughout UE & LE w/ MS 09/14. Patient was given Motrin for pain relief.
--- NOTE | 2020-01-12 21:24 | PN ---
[facility] Progress Note Note: Patient came back from evaluation in ER secondary to unwitnessed fall and complaint of left buttock pain. His CT scan of the head indicates no acute intracranial pathology and Pelic/Hip X-ray indicates no acute fracture or pathology. Patient was medically cleared to continue with Rehab. He is alert and oriented x 3, in no acute distress, ambulates with slight difficulty, denies pain or discomfort at this time. Action: Continue Rehab
[2020-01-12] MEDS: MELATONIN 5 MG TABLETS PO SCH (21:50)
[2020-01-12] MEDS: THIAMINE HCL 100 MG TABLET (FP) PO SCH (21:50)
[2020-01-12] MEDS ORDERED: traZODone HCL 50 MG TABLET (FP) PO SCH (22:00)
[2020-01-12] MEDS ORDERED: PT OWN MED DRAWER 7, Y5N ONE (22:04)
[2020-01-12] MEDS: metFORMIN HCL 500 MG TABLET (FP) PO SCH (22:36)
[2020-01-12] MEDS: INSULIN SLIDING SCALE (NOVOLOG) 1 VIAL SQ SCH (22:44)
[2020-01-13] MEDS: ACETAMINOPHEN 325 MG TABLET (FP) PO PRN ×2 (06:27→21:43)
[2020-01-13] MEDS: metFORMIN HCL 500 MG TABLET (FP) PO SCH ×2 (06:37→16:17)
[2020-01-13] MEDS: ARTIFICIAL TEARS (POLYVINYL ALCOHOL) OPTH DROPS OU SCH ×3 (06:37→21:40)
[2020-01-13] MEDS: INSULIN SLIDING SCALE (NOVOLOG) 1 VIAL SQ SCH ×2 (06:39→16:18)
[2020-01-13] MEDS ORDERED: INSULIN SLIDING SCALE (NOVOLOG) 1 VIAL SQ ONE (06:39)
[2020-01-13] MEDS: IBUPROFEN 400 MG TABLET (FP) PO PRN (07:54)
--- NOTE | 2020-01-13 08:09 | PN ---
Teaching Attending Note Name of Resident: Martin Conklin ATTENDING PHYSICIAN STATEMENT I saw and evaluated the patient. I reviewed the resident's note and discussed the case with the resident. I agree with the resident's findings and plan as documented. SUBJECTIVE: OBJECTIVE: ASSESSMENT AND PLAN: Agree with resident's findings and plan for detox.
[2020-01-13] MEDS: ESCITALOPRAM OXALATE 20 MG TABLET PO SCH (10:27)
[2020-01-13] MEDS: PRENATAL VITAMINS W/ FOLIC ACID TABLET (FP) PO SCH (10:27)
[2020-01-13] MEDS: amLODIPine BESYLATE 10 MG TABLET (FP) PO SCH (10:28)
[2020-01-13] MEDS: BUPRENORPHINE/NALOXONE 8 MG/2 MG FILM PACKET SL SCH (10:28)
[2020-01-13] MEDS: NICOTINE 7 MG/24 HOURS TOPICAL PATCH TD SCH (10:29)
--- NOTE | 2020-01-13 10:37 | PN ---
[facility] Progress Note (SOAP) Subjective: Patient c/o left elbow pain. S/P fall yesterday on left side. He was sent to the ER for evaluation, CT of left hip was negative, CT of head was negative. Physical exam of upper extremities did not reveal injury, limited ROM. Objective: 01/13/20 10:34 Vital Signs Period Temp Pulse Resp BP Sys/Contreras Pulse Ox Last 24 Hr 97.5 F-98.4 F 62-84 16-18 103-135/55-79 94-97 P/E: General: no apparent distress HEENTM: PERRLA, normocephalic, EOMI NEck: supple Resp: unlabored MSK: full weight bearing, steady gait Extremities: Left elbow red, swollen, tender to palpation, has full extension and flexion, however painful Assessment: Left Elbow pain 01/13/20 10:36 Plan: X-ray of elbow ordered, Advised motrin Ordered lidoderm patch
--- NOTE | 2020-01-13 11:06 | CONSULT ---
[facility] Psychiatric Consult - Data Date of interview: 01/13/20 Admission source: [facility] Identifying data: Patient is a 64 year old male, without children, unemployed (retired), and is supported by [facility]. This is patient's first admission to rehab at [facility]. Patient admitted to [facility] rehab for treatment of alcohol dependence. Substance Abuse History: Smoking Cessation. Smoking history: Current every day smoker. Hx Chewing Tobacco Use: No. Initiated information on smoking cessation: Yes. 'Breaking Loose' booklet given: 01/08/20. - Substances abused. Alcohol. Substance route: Oral. Frequency: Daily. Amount used: 2 PINTS RUM. Age of first use: 8. Date of last use: 01/08/20. Marijuana/Hashish. Substance route: Smoking. Frequency: Daily. Amount used: 1 JOINT. Age of first use: 13. Date of last use: 01/07/20 Medical History: bronchial asthma, dyslipidemia, hypertension, antecedent of multiple surgeries : total knee replacement (right) + past intervention for pept ic ulcer disease (self-report) + colorectal cancer (surgery done four years ago at [facility]). Psychiatric History: Patient denies history of psychiatric hospitalization and suicide attempt. States that he was diagnosed with MDD at [facility] mental [facility]. Patient is currently prescribed lexapro 20mg + Trazodone 50mg HS + Suboxone by his primary care physician at . At present patient reports difficulty sleeping. Physical/Sexual Abuse/Trauma History: denies. Mental Status Exam - Mental Status Exam Alert and Oriented to: Time, Place, Person Cognitive Function: Fair Patient Appearance: Well Groomed Mood: Withdrawn Affect: Appropriate Patient Behavior: Cooperative Speech Pattern: Appropriate Voice Loudness: Normal Thought Process: Goal Oriented Thought Disorder: Not Present Hallucinations: Denies Suicidal Ideation: Denies Homicidal Ideation: Denies Insight/Judgement: Poor Sleep: Poorly Appetite: Fair Muscle strength/Tone: Normal Gait/Station: Normal Psychiatric Findings - Problem List ([place] 1, 2,3) (1) Alcohol use disorder Current Visit: Yes Status: Acute (2) Nicotine dependence Current Visit: Yes Status: Acute Qualifiers: Nicotine product type: cigarettes Substance use status: in withdrawal Qualified Code(s): F17.213 - Nicotine dependence, cigarettes, with withdrawal (3) History of depression Current Visit: Yes Status: Chronic (4) Opioid dependence on agonist therapy Current Visit: Yes Status: Chronic - Initial Treatment Plan Initial Treatment Plan: Psychoeducation provided. Rehab in progress. Will d/c trazodone 50mg HS. Will order Lexapro 20mg + Trazodone 75mg HS. Benefits and side effects discussed. Verbal consent given.
[2020-01-13] MEDS: LIDOCAINE 5% TOPICAL PATCH TP SCH (11:36)
[2020-01-13] MEDS ORDERED: PNEUMOCOCCAL 23 VACCINE 0.5 ML VIAL IM ONE (12:00)
[2020-01-13] MEDS: THIAMINE HCL 100 MG TABLET (FP) PO SCH (21:40)
[2020-01-13] MEDS: traZODone HCL 50 MG TABLET (FP) PO SCH (21:40)
[2020-01-13] MEDS: LIDOCAINE PATCH REMOVAL MC SCH (21:41)
[2020-01-13] MEDS: MELATONIN 5 MG TABLETS PO SCH (21:41)
[2020-01-14] MEDS: ACETAMINOPHEN 325 MG TABLET (FP) PO PRN (06:40)
[2020-01-14] MEDS: ARTIFICIAL TEARS (POLYVINYL ALCOHOL) OPTH DROPS OU SCH ×3 (06:41→21:33)
[2020-01-14] MEDS ORDERED: INSULIN SLIDING SCALE (NOVOLOG) 1 VIAL SQ ONE ×2 (07:29→16:32)
[2020-01-14] MEDS: metFORMIN HCL 500 MG TABLET (FP) PO SCH ×2 (07:32→16:33)
[2020-01-14] MEDS: INSULIN SLIDING SCALE (NOVOLOG) 1 VIAL SQ SCH ×2 (07:32→16:34)
--- NOTE | 2020-01-14 09:46 | PN ---
S Progress Note Note: X-ray of patient's elbow indicates that there is no fracture or subluxation. Patient is now c/o right shoulder pain r/t fall 4 weeks ago, given motrin by nurse with good effect. BGMs have been elevated P/E General: no apparent distress MSK: full weight bearing, ROM limited by pain, unsteady gait Extremities: L elbow with redness and swelling; R shoulder limited ROM 2/2 pain Neuro: Muscle strength equal A/P: Unsteady gait: Cane supplied, Ammonia level ordered. Will continue to monitor Joint Pain: continue with NSAIDS and lidoderm patch Elevated BGM: Sliding scale increased.
[2020-01-14] MEDS: PRENATAL VITAMINS W/ FOLIC ACID TABLET (FP) PO SCH (10:12)
[2020-01-14] MEDS: amLODIPine BESYLATE 10 MG TABLET (FP) PO SCH (10:12)
[2020-01-14] MEDS: BUPRENORPHINE/NALOXONE 8 MG/2 MG FILM PACKET SL SCH (10:12)
[2020-01-14] MEDS: ESCITALOPRAM OXALATE 20 MG TABLET PO SCH (10:12)
[2020-01-14] MEDS: NICOTINE 7 MG/24 HOURS TOPICAL PATCH TD SCH (10:12)
[2020-01-14] MEDS: LIDOCAINE 5% TOPICAL PATCH TP SCH (10:13)
[2020-01-14] MEDS: THIAMINE HCL 100 MG TABLET (FP) PO SCH (21:30)
[2020-01-14] MEDS: LIDOCAINE PATCH REMOVAL MC SCH (21:30)
[2020-01-14] MEDS: MELATONIN 5 MG TABLETS PO SCH (21:30)
[2020-01-14] MEDS: traZODone HCL 50 MG TABLET (FP) PO SCH (21:31)
[2020-01-15] MEDS: ARTIFICIAL TEARS (POLYVINYL ALCOHOL) OPTH DROPS OU SCH ×3 (06:33→21:04)
[2020-01-15] MEDS: metFORMIN HCL 500 MG TABLET (FP) PO SCH ×2 (06:33→16:28)
[2020-01-15] MEDS: INSULIN SLIDING SCALE (NOVOLOG) 1 VIAL SQ SCH ×2 (06:33→16:29)
[2020-01-15] MEDS ORDERED: INSULIN SLIDING SCALE (NOVOLOG) 1 VIAL SQ ONE ×2 (06:34→16:27)
[2020-01-15] MEDS: NICOTINE 7 MG/24 HOURS TOPICAL PATCH TD SCH (09:42)
[2020-01-15] MEDS: ESCITALOPRAM OXALATE 20 MG TABLET PO SCH (09:42)
[2020-01-15] MEDS: BUPRENORPHINE/NALOXONE 8 MG/2 MG FILM PACKET SL SCH (09:42)
[2020-01-15] MEDS: LIDOCAINE 5% TOPICAL PATCH TP SCH (09:42)
[2020-01-15] MEDS: amLODIPine BESYLATE 10 MG TABLET (FP) PO SCH (09:42)
[2020-01-15] MEDS: PRENATAL VITAMINS W/ FOLIC ACID TABLET (FP) PO SCH (09:42)
--- NOTE | 2020-01-15 13:05 | PN ---
[facility] Progress Note Note: Vital Signs Temperature 97.3 F L 01/15/20 08:58 Pulse Rate 90 01/15/20 08:58 Respiratory Rate 18 01/15/20 08:58 Blood Pressure 116/65 01/15/20 08:58 O2 Sat by Pulse Oximetry (%) 98 01/15/20 08:58 Laboratory Tests 01/12/20 01/12/20 01/13/20 22:41 23:55 06:25 POC Glucometer 588 499 358 Uric Acid Ammonia 01/13/20 01/14/20 01/14/20 16:17 06:38 16:31 POC Glucometer 345 260 342 Uric Acid Ammonia 01/15/20 01/15/20 01/15/20 06:28 08:50 08:50 POC Glucometer 235 Uric Acid 3.9 Ammonia 99.20 H Labs appreciated. Uric Acid level normal. Ammonia level 99.20- elevated likely due to alcohol dependence A/P: elevated ammonia levels will start lactulose 20g tid and repeat ammonia level on 01/21/2020
[2020-01-15] MEDS: LACTULOSE 20 GM/30 ML UDC (FOR ORAL USE ONLY) PO SCH ×2 (14:16→21:04)
[2020-01-15] MEDS: MELATONIN 5 MG TABLETS PO SCH (21:04)
[2020-01-15] MEDS: THIAMINE HCL 100 MG TABLET (FP) PO SCH (21:04)
[2020-01-15] MEDS: traZODone HCL 50 MG TABLET (FP) PO SCH (21:04)
[2020-01-15] MEDS: LIDOCAINE PATCH REMOVAL MC SCH (21:04)
[2020-01-16] MEDS: LACTULOSE 20 GM/30 ML UDC (FOR ORAL USE ONLY) PO SCH ×3 (06:09→21:21)
[2020-01-16] MEDS: metFORMIN HCL 500 MG TABLET (FP) PO SCH ×2 (06:09→16:32)
[2020-01-16] MEDS: ARTIFICIAL TEARS (POLYVINYL ALCOHOL) OPTH DROPS OU SCH ×3 (06:09→21:22)
[2020-01-16] MEDS: INSULIN SLIDING SCALE (NOVOLOG) 1 VIAL SQ SCH ×2 (06:12→16:33)
[2020-01-16] MEDS ORDERED: INSULIN SLIDING SCALE (NOVOLOG) 1 VIAL SQ ONE ×2 (06:21→16:31)
[2020-01-16] MEDS: amLODIPine BESYLATE 10 MG TABLET (FP) PO SCH (09:39)
[2020-01-16] MEDS: PRENATAL VITAMINS W/ FOLIC ACID TABLET (FP) PO SCH (09:39)
[2020-01-16] MEDS: ESCITALOPRAM OXALATE 20 MG TABLET PO SCH (09:39)
[2020-01-16] MEDS: BUPRENORPHINE/NALOXONE 8 MG/2 MG FILM PACKET SL SCH (09:40)
[2020-01-16] MEDS: LIDOCAINE 5% TOPICAL PATCH TP SCH (09:40)
[2020-01-16] MEDS: NICOTINE 7 MG/24 HOURS TOPICAL PATCH TD SCH (09:40)
[2020-01-16] MEDS: LIDOCAINE PATCH REMOVAL MC SCH (21:21)
[2020-01-16] MEDS: THIAMINE HCL 100 MG TABLET (FP) PO SCH (21:21)
[2020-01-16] MEDS: MELATONIN 5 MG TABLETS PO SCH (21:21)
[2020-01-16] MEDS: traZODone HCL 50 MG TABLET (FP) PO SCH (21:21)
[2020-01-17] MEDS: LACTULOSE 20 GM/30 ML UDC (FOR ORAL USE ONLY) PO SCH ×3 (06:17→21:11)
[2020-01-17] MEDS: metFORMIN HCL 500 MG TABLET (FP) PO SCH ×2 (06:19→16:24)
[2020-01-17] MEDS: INSULIN SLIDING SCALE (NOVOLOG) 1 VIAL SQ SCH ×2 (06:20→16:25)
[2020-01-17] MEDS: ARTIFICIAL TEARS (POLYVINYL ALCOHOL) OPTH DROPS OU SCH ×3 (06:20→21:12)
[2020-01-17] MEDS: PRENATAL VITAMINS W/ FOLIC ACID TABLET (FP) PO SCH (09:03)
[2020-01-17] MEDS: amLODIPine BESYLATE 10 MG TABLET (FP) PO SCH (09:03)
[2020-01-17] MEDS: ESCITALOPRAM OXALATE 20 MG TABLET PO SCH (09:03)
[2020-01-17] MEDS: LIDOCAINE 5% TOPICAL PATCH TP SCH (09:03)
[2020-01-17] MEDS: BUPRENORPHINE/NALOXONE 8 MG/2 MG FILM PACKET SL SCH (09:04)
[2020-01-17] MEDS: NICOTINE 7 MG/24 HOURS TOPICAL PATCH TD SCH (09:04)
[2020-01-17] MEDS ORDERED: INSULIN SLIDING SCALE (NOVOLOG) 1 VIAL SQ ONE (16:23)
[2020-01-17] MEDS: LIDOCAINE PATCH REMOVAL MC SCH (21:11)
[2020-01-17] MEDS: MELATONIN 5 MG TABLETS PO SCH (21:11)
[2020-01-17] MEDS: THIAMINE HCL 100 MG TABLET (FP) PO SCH (21:11)
[2020-01-17] MEDS: traZODone HCL 50 MG TABLET (FP) PO SCH (21:12)
[2020-01-18] MEDS: LACTULOSE 20 GM/30 ML UDC (FOR ORAL USE ONLY) PO SCH ×3 (06:41→21:38)
[2020-01-18] MEDS: ARTIFICIAL TEARS (POLYVINYL ALCOHOL) OPTH DROPS OU SCH ×3 (06:42→21:38)
[2020-01-18] MEDS: metFORMIN HCL 500 MG TABLET (FP) PO SCH ×2 (06:43→16:36)
[2020-01-18] MEDS ORDERED: INSULIN SLIDING SCALE (NOVOLOG) 1 VIAL SQ ONE ×2 (06:47→16:29)
[2020-01-18] MEDS: INSULIN SLIDING SCALE (NOVOLOG) 1 VIAL SQ SCH ×2 (06:48→16:38)
[2020-01-18] MEDS: PRENATAL VITAMINS W/ FOLIC ACID TABLET (FP) PO SCH (10:06)
[2020-01-18] MEDS: amLODIPine BESYLATE 10 MG TABLET (FP) PO SCH (10:06)
[2020-01-18] MEDS: ESCITALOPRAM OXALATE 20 MG TABLET PO SCH (10:06)
[2020-01-18] MEDS: BUPRENORPHINE/NALOXONE 8 MG/2 MG FILM PACKET SL SCH (10:06)
[2020-01-18] MEDS: NICOTINE 7 MG/24 HOURS TOPICAL PATCH TD SCH (10:07)
[2020-01-18] MEDS: LIDOCAINE 5% TOPICAL PATCH TP SCH (10:07)
[2020-01-18] MEDS: LIDOCAINE PATCH REMOVAL MC SCH (21:38)
[2020-01-18] MEDS: traZODone HCL 50 MG TABLET (FP) PO SCH (21:38)
[2020-01-18] MEDS: THIAMINE HCL 100 MG TABLET (FP) PO SCH (21:38)
[2020-01-18] MEDS: MELATONIN 5 MG TABLETS PO SCH (21:39)
[2020-01-19] MEDS: ARTIFICIAL TEARS (POLYVINYL ALCOHOL) OPTH DROPS OU SCH ×3 (06:06→21:11)
[2020-01-19] MEDS: LACTULOSE 20 GM/30 ML UDC (FOR ORAL USE ONLY) PO SCH ×3 (06:06→21:11)
[2020-01-19] MEDS: INSULIN SLIDING SCALE (NOVOLOG) 1 VIAL SQ SCH ×2 (06:58→16:33)
[2020-01-19] MEDS ORDERED: INSULIN SLIDING SCALE (NOVOLOG) 1 VIAL SQ ONE ×2 (06:58→16:32)
[2020-01-19] MEDS: metFORMIN HCL 500 MG TABLET (FP) PO SCH ×2 (06:58→16:33)
[2020-01-19] MEDS: amLODIPine BESYLATE 10 MG TABLET (FP) PO SCH (09:47)
[2020-01-19] MEDS: BUPRENORPHINE/NALOXONE 8 MG/2 MG FILM PACKET SL SCH (09:47)
[2020-01-19] MEDS: PRENATAL VITAMINS W/ FOLIC ACID TABLET (FP) PO SCH (09:47)
[2020-01-19] MEDS: ESCITALOPRAM OXALATE 20 MG TABLET PO SCH (09:47)
[2020-01-19] MEDS: NICOTINE 7 MG/24 HOURS TOPICAL PATCH TD SCH (09:47)
[2020-01-19] MEDS: LIDOCAINE 5% TOPICAL PATCH TP SCH (09:47)
[2020-01-19] MEDS ORDERED: PT OWN MED DRAWER 7, Y5N ONE (09:49)
[2020-01-19] MEDS: BUDESONIDE/FORMETEROL FUMARATE 80/4.5 mcg INHALER IH SCH ×2 (14:00→21:12)
[2020-01-19] MEDS: MELATONIN 5 MG TABLETS PO SCH (21:11)
[2020-01-19] MEDS: traZODone HCL 50 MG TABLET (FP) PO SCH (21:11)
[2020-01-19] MEDS: LIDOCAINE PATCH REMOVAL MC SCH (21:11)
[2020-01-19] MEDS: THIAMINE HCL 100 MG TABLET (FP) PO SCH (21:11)
[2020-01-20] MEDS: LACTULOSE 20 GM/30 ML UDC (FOR ORAL USE ONLY) PO SCH ×4 (06:06→21:31)
[2020-01-20] MEDS: metFORMIN HCL 500 MG TABLET (FP) PO SCH ×2 (06:06→16:33)
[2020-01-20] MEDS: ARTIFICIAL TEARS (POLYVINYL ALCOHOL) OPTH DROPS OU SCH ×3 (06:07→21:32)
[2020-01-20] MEDS: INSULIN SLIDING SCALE (NOVOLOG) 1 VIAL SQ SCH ×2 (07:59→16:34)
[2020-01-20] MEDS: LIDOCAINE 5% TOPICAL PATCH TP SCH (10:09)
[2020-01-20] MEDS: BUPRENORPHINE/NALOXONE 8 MG/2 MG FILM PACKET SL SCH (10:09)
[2020-01-20] MEDS: ESCITALOPRAM OXALATE 20 MG TABLET PO SCH (10:09)
[2020-01-20] MEDS: PRENATAL VITAMINS W/ FOLIC ACID TABLET (FP) PO SCH (10:09)
[2020-01-20] MEDS: amLODIPine BESYLATE 10 MG TABLET (FP) PO SCH (10:09)
[2020-01-20] MEDS: NICOTINE 7 MG/24 HOURS TOPICAL PATCH TD SCH (10:09)
[2020-01-20] MEDS: BUDESONIDE/FORMETEROL FUMARATE 80/4.5 mcg INHALER IH SCH ×2 (10:10→21:31)
[2020-01-20] MEDS ORDERED: LACTULOSE 20 GM/30 ML UDC (FOR ORAL USE ONLY) PO PRN (11:08)
--- NOTE | 2020-01-20 11:11 | PN ---
[facility] Progress Note Note: Ammonia level continues to be elevated. Increased lactulose to QID.Laboratory Last Values POC Glucometer 152 UNITS (80-120) 01/20/20 06:05 Uric Acid 3.9 mg/dL (2.6-7.2) 01/15/20 08:50 Ammonia 90.00 umol/L (11-32) H 01/20/20 07:50 Vital Signs Period Temp Pulse Resp BP Sys/Contreras Pulse Ox Last 24 Hr 96.5 F-98 F 79-84 18-18 113-124/64-66 95-97
[2020-01-20] MEDS ORDERED: INSULIN SLIDING SCALE (NOVOLOG) 1 VIAL SQ ONE (16:41)
[2020-01-20] MEDS: THIAMINE HCL 100 MG TABLET (FP) PO SCH (21:31)
[2020-01-20] MEDS: MELATONIN 5 MG TABLETS PO SCH (21:31)
[2020-01-20] MEDS: LIDOCAINE PATCH REMOVAL MC SCH (21:31)
[2020-01-20] MEDS: traZODone HCL 50 MG TABLET (FP) PO SCH (21:31)
[2020-01-21] MEDS: metFORMIN HCL 500 MG TABLET (FP) PO SCH ×2 (06:06→16:22)
[2020-01-21] MEDS: ARTIFICIAL TEARS (POLYVINYL ALCOHOL) OPTH DROPS OU SCH ×3 (06:06→21:11)
[2020-01-21] MEDS ORDERED: INSULIN SLIDING SCALE (NOVOLOG) 1 VIAL SQ ONE ×2 (06:56→16:21)
[2020-01-21] MEDS: INSULIN SLIDING SCALE (NOVOLOG) 1 VIAL SQ SCH ×2 (06:56→16:22)
[2020-01-21] MEDS: amLODIPine BESYLATE 10 MG TABLET (FP) PO SCH (09:49)
[2020-01-21] MEDS: PRENATAL VITAMINS W/ FOLIC ACID TABLET (FP) PO SCH (09:49)
[2020-01-21] MEDS: LACTULOSE 20 GM/30 ML UDC (FOR ORAL USE ONLY) PO SCH ×4 (09:49→21:10)
[2020-01-21] MEDS: BUPRENORPHINE/NALOXONE 8 MG/2 MG FILM PACKET SL SCH (09:49)
[2020-01-21] MEDS: LIDOCAINE 5% TOPICAL PATCH TP SCH (09:49)
[2020-01-21] MEDS: ESCITALOPRAM OXALATE 20 MG TABLET PO SCH (09:49)
[2020-01-21] MEDS: NICOTINE 7 MG/24 HOURS TOPICAL PATCH TD SCH (09:50)
[2020-01-21] MEDS: BUDESONIDE/FORMETEROL FUMARATE 80/4.5 mcg INHALER IH SCH ×2 (09:50→21:11)
[2020-01-21] MEDS: THIAMINE HCL 100 MG TABLET (FP) PO SCH (21:10)
[2020-01-21] MEDS: MELATONIN 5 MG TABLETS PO SCH (21:10)
[2020-01-21] MEDS: LIDOCAINE PATCH REMOVAL MC SCH (21:10)
[2020-01-21] MEDS: traZODone HCL 50 MG TABLET (FP) PO SCH (21:10)
[2020-01-22] MEDS: metFORMIN HCL 500 MG TABLET (FP) PO SCH ×2 (07:21→16:24)
[2020-01-22] MEDS: ARTIFICIAL TEARS (POLYVINYL ALCOHOL) OPTH DROPS OU SCH ×3 (07:22→21:31)
[2020-01-22] MEDS: INSULIN SLIDING SCALE (NOVOLOG) 1 VIAL SQ SCH ×2 (07:31→16:25)
[2020-01-22] MEDS: NICOTINE 7 MG/24 HOURS TOPICAL PATCH TD SCH (09:59)
[2020-01-22] MEDS: BUPRENORPHINE/NALOXONE 8 MG/2 MG FILM PACKET SL SCH (09:59)
[2020-01-22] MEDS: LACTULOSE 20 GM/30 ML UDC (FOR ORAL USE ONLY) PO SCH ×4 (09:59→21:30)
[2020-01-22] MEDS: BUDESONIDE/FORMETEROL FUMARATE 80/4.5 mcg INHALER IH SCH ×2 (09:59→21:31)
[2020-01-22] MEDS: PRENATAL VITAMINS W/ FOLIC ACID TABLET (FP) PO SCH (09:59)
[2020-01-22] MEDS: ESCITALOPRAM OXALATE 20 MG TABLET PO SCH (09:59)
[2020-01-22] MEDS: amLODIPine BESYLATE 10 MG TABLET (FP) PO SCH (09:59)
[2020-01-22] MEDS: LIDOCAINE 5% TOPICAL PATCH TP SCH (09:59)
[2020-01-22] MEDS ORDERED: INSULIN SLIDING SCALE (NOVOLOG) 1 VIAL SQ ONE (16:24)
[2020-01-22] MEDS: MELATONIN 5 MG TABLETS PO SCH (21:30)
[2020-01-22] MEDS: traZODone HCL 50 MG TABLET (FP) PO SCH (21:30)
[2020-01-22] MEDS: THIAMINE HCL 100 MG TABLET (FP) PO SCH (21:30)
[2020-01-22] MEDS: LIDOCAINE PATCH REMOVAL MC SCH (21:30)
[2020-01-23] MEDS: ARTIFICIAL TEARS (POLYVINYL ALCOHOL) OPTH DROPS OU SCH ×3 (06:02→21:08)
[2020-01-23] MEDS: metFORMIN HCL 500 MG TABLET (FP) PO SCH ×2 (07:27→16:38)
[2020-01-23] MEDS: INSULIN SLIDING SCALE (NOVOLOG) 1 VIAL SQ SCH ×2 (07:28→16:41)
[2020-01-23] MEDS: LACTULOSE 20 GM/30 ML UDC (FOR ORAL USE ONLY) PO SCH ×4 (09:51→21:08)
[2020-01-23] MEDS: BUPRENORPHINE/NALOXONE 8 MG/2 MG FILM PACKET SL SCH (09:51)
[2020-01-23] MEDS: LIDOCAINE 5% TOPICAL PATCH TP SCH (09:52)
[2020-01-23] MEDS: PRENATAL VITAMINS W/ FOLIC ACID TABLET (FP) PO SCH (09:52)
[2020-01-23] MEDS: ESCITALOPRAM OXALATE 20 MG TABLET PO SCH (09:52)
[2020-01-23] MEDS: amLODIPine BESYLATE 10 MG TABLET (FP) PO SCH (09:52)
[2020-01-23] MEDS: BUDESONIDE/FORMETEROL FUMARATE 80/4.5 mcg INHALER IH SCH ×2 (09:53→21:09)
[2020-01-23] MEDS: NICOTINE 7 MG/24 HOURS TOPICAL PATCH TD SCH (09:53)
[2020-01-23] MEDS: MELATONIN 5 MG TABLETS PO SCH (21:08)
[2020-01-23] MEDS: traZODone HCL 50 MG TABLET (FP) PO SCH (21:08)
[2020-01-23] MEDS: THIAMINE HCL 100 MG TABLET (FP) PO SCH (21:08)
[2020-01-23] MEDS: LIDOCAINE PATCH REMOVAL MC SCH (21:09)
[2020-01-24] MEDS: ARTIFICIAL TEARS (POLYVINYL ALCOHOL) OPTH DROPS OU SCH ×3 (06:33→21:42)
[2020-01-24] MEDS: metFORMIN HCL 500 MG TABLET (FP) PO SCH ×2 (07:20→16:48)
[2020-01-24] MEDS: INSULIN SLIDING SCALE (NOVOLOG) 1 VIAL SQ SCH ×2 (07:20→16:49)
[2020-01-24] MEDS: amLODIPine BESYLATE 10 MG TABLET (FP) PO SCH (09:47)
[2020-01-24] MEDS: BUPRENORPHINE/NALOXONE 8 MG/2 MG FILM PACKET SL SCH (09:47)
[2020-01-24] MEDS: BUDESONIDE/FORMETEROL FUMARATE 80/4.5 mcg INHALER IH SCH ×2 (09:47→21:40)
[2020-01-24] MEDS: LACTULOSE 20 GM/30 ML UDC (FOR ORAL USE ONLY) PO SCH ×4 (09:47→21:41)
[2020-01-24] MEDS: NICOTINE 7 MG/24 HOURS TOPICAL PATCH TD SCH (09:47)
[2020-01-24] MEDS: PRENATAL VITAMINS W/ FOLIC ACID TABLET (FP) PO SCH (09:47)
[2020-01-24] MEDS: ESCITALOPRAM OXALATE 20 MG TABLET PO SCH (09:47)
[2020-01-24] MEDS: LIDOCAINE 5% TOPICAL PATCH TP SCH (09:48)
[2020-01-24] MEDS ORDERED: PT OWN MED DRAWER 7, Y5N ONE (13:52)
[2020-01-24] MEDS ORDERED: INSULIN SLIDING SCALE (NOVOLOG) 1 VIAL SQ ONE (16:20)
[2020-01-24] MEDS: traZODone HCL 50 MG TABLET (FP) PO SCH (21:41)
[2020-01-24] MEDS: MELATONIN 5 MG TABLETS PO SCH (21:41)
[2020-01-24] MEDS: LIDOCAINE PATCH REMOVAL MC SCH (21:42)
[2020-01-24] MEDS: THIAMINE HCL 100 MG TABLET (FP) PO SCH (21:42)
[2020-01-25] MEDS: INSULIN SLIDING SCALE (NOVOLOG) 1 VIAL SQ SCH ×2 (06:31→16:41)
[2020-01-25] MEDS: ARTIFICIAL TEARS (POLYVINYL ALCOHOL) OPTH DROPS OU SCH ×3 (06:31→21:09)
[2020-01-25] MEDS: metFORMIN HCL 500 MG TABLET (FP) PO SCH ×2 (06:31→16:37)
[2020-01-25] MEDS: LACTULOSE 20 GM/30 ML UDC (FOR ORAL USE ONLY) PO SCH ×4 (09:48→21:08)
[2020-01-25] MEDS: ESCITALOPRAM OXALATE 20 MG TABLET PO SCH (09:48)
[2020-01-25] MEDS: PRENATAL VITAMINS W/ FOLIC ACID TABLET (FP) PO SCH (09:48)
[2020-01-25] MEDS: BUPRENORPHINE/NALOXONE 8 MG/2 MG FILM PACKET SL SCH (09:49)
[2020-01-25] MEDS: LIDOCAINE 5% TOPICAL PATCH TP SCH (09:49)
[2020-01-25] MEDS: NICOTINE 7 MG/24 HOURS TOPICAL PATCH TD SCH (09:49)
[2020-01-25] MEDS: amLODIPine BESYLATE 10 MG TABLET (FP) PO SCH (09:49)
[2020-01-25] MEDS: BUDESONIDE/FORMETEROL FUMARATE 80/4.5 mcg INHALER IH SCH ×2 (09:52→21:09)
[2020-01-25] MEDS: LIDOCAINE PATCH REMOVAL MC SCH (21:08)
[2020-01-25] MEDS: MELATONIN 5 MG TABLETS PO SCH (21:08)
[2020-01-25] MEDS: THIAMINE HCL 100 MG TABLET (FP) PO SCH (21:08)
[2020-01-25] MEDS: traZODone HCL 50 MG TABLET (FP) PO SCH (21:08)
[2020-01-26] MEDS: ARTIFICIAL TEARS (POLYVINYL ALCOHOL) OPTH DROPS OU SCH ×3 (06:32→21:38)
[2020-01-26] MEDS: metFORMIN HCL 500 MG TABLET (FP) PO SCH ×2 (07:18→16:41)
[2020-01-26] MEDS: INSULIN SLIDING SCALE (NOVOLOG) 1 VIAL SQ SCH ×2 (07:18→16:42)
[2020-01-26] MEDS: ESCITALOPRAM OXALATE 20 MG TABLET PO SCH (09:44)
[2020-01-26] MEDS: LACTULOSE 20 GM/30 ML UDC (FOR ORAL USE ONLY) PO SCH ×4 (09:44→21:38)
[2020-01-26] MEDS: PRENATAL VITAMINS W/ FOLIC ACID TABLET (FP) PO SCH (09:44)
[2020-01-26] MEDS: amLODIPine BESYLATE 10 MG TABLET (FP) PO SCH (09:44)
[2020-01-26] MEDS: BUDESONIDE/FORMETEROL FUMARATE 80/4.5 mcg INHALER IH SCH ×2 (09:45→21:39)
[2020-01-26] MEDS: LIDOCAINE 5% TOPICAL PATCH TP SCH (09:45)
[2020-01-26] MEDS: BUPRENORPHINE/NALOXONE 8 MG/2 MG FILM PACKET SL SCH (09:45)
[2020-01-26] MEDS: NICOTINE 7 MG/24 HOURS TOPICAL PATCH TD SCH (09:45)
--- NOTE | 2020-01-26 16:37 | PN ---
[facility] Progress Note Note: Laboratory Last Values POC Glucometer 113 UNITS (80-120) 01/26/20 06:33 Uric Acid 3.9 mg/dL (2.6-7.2) 01/15/20 08:50 Ammonia 65.30 umol/L (11-32) H 01/26/20 08:20 Ammonia level decreased from 90 Laboratory Tests 01/12/20 01/12/20 01/13/20 22:41 23:55 06:25 POC Glucometer 588 499 358 Uric Acid Ammonia 01/13/20 01/14/20 01/14/20 16:17 06:38 16:31 POC Glucometer 345 260 342 Uric Acid Ammonia 01/15/20 01/15/20 01/15/20 06:28 08:50 08:50 POC Glucometer 235 Uric Acid 3.9 Ammonia 99.20 H 01/15/20 01/16/20 01/16/20 16:27 06:07 16:30 POC Glucometer 292 180 230 Uric Acid Ammonia 01/17/20 01/17/20 01/18/20 06:19 16:22 06:42 POC Glucometer 147 293 167 Uric Acid Ammonia 01/18/20 01/19/20 01/19/20 16:38 06:07 16:30 POC Glucometer 257 165 211 Uric Acid Ammonia 01/20/20 01/20/20 01/20/20 06:05 07:50 16:32 POC Glucometer 152 204 Uric Acid Ammonia 90.00 H 01/21/20 01/21/20 01/22/20 06:05 16:24 07:30 POC Glucometer 156 249 137 Uric Acid Ammonia 01/22/20 01/23/20 01/23/20 16:23 06:02 16:40 POC Glucometer 256 122 139 Uric Acid Ammonia 01/24/20 01/24/20 01/25/20 06:32 16:46 06:30 POC Glucometer 134 185 130 Uric Acid Ammonia 01/25/20 01/26/20 01/26/20 16:38 06:33 08:20 POC Glucometer 232 113 Uric Acid Ammonia 65.30 H
[2020-01-26] MEDS: MELATONIN 5 MG TABLETS PO SCH (21:37)
[2020-01-26] MEDS: traZODone HCL 50 MG TABLET (FP) PO SCH (21:37)
[2020-01-26] MEDS: THIAMINE HCL 100 MG TABLET (FP) PO SCH (21:37)
[2020-01-26] MEDS: LIDOCAINE PATCH REMOVAL MC SCH (21:37)
[2020-01-27] MEDS: ARTIFICIAL TEARS (POLYVINYL ALCOHOL) OPTH DROPS OU SCH ×3 (06:14→21:11)
[2020-01-27] MEDS: metFORMIN HCL 500 MG TABLET (FP) PO SCH ×2 (07:17→16:42)
[2020-01-27] MEDS: INSULIN SLIDING SCALE (NOVOLOG) 1 VIAL SQ SCH ×2 (07:18→16:46)
[2020-01-27] MEDS: NICOTINE 7 MG/24 HOURS TOPICAL PATCH TD SCH (10:00)
[2020-01-27] MEDS: amLODIPine BESYLATE 10 MG TABLET (FP) PO SCH (10:00)
[2020-01-27] MEDS: ESCITALOPRAM OXALATE 20 MG TABLET PO SCH (10:00)
[2020-01-27] MEDS: LACTULOSE 20 GM/30 ML UDC (FOR ORAL USE ONLY) PO SCH ×4 (10:00→21:10)
[2020-01-27] MEDS: LIDOCAINE 5% TOPICAL PATCH TP SCH (10:00)
[2020-01-27] MEDS: PRENATAL VITAMINS W/ FOLIC ACID TABLET (FP) PO SCH (10:01)
[2020-01-27] MEDS: BUPRENORPHINE/NALOXONE 8 MG/2 MG FILM PACKET SL SCH (10:02)
[2020-01-27] MEDS: IBUPROFEN 400 MG TABLET (FP) PO PRN (10:03)
[2020-01-27] MEDS: BUDESONIDE/FORMETEROL FUMARATE 80/4.5 mcg INHALER IH SCH ×2 (10:06→21:10)
[2020-01-27] MEDS: THIAMINE HCL 100 MG TABLET (FP) PO SCH (21:09)
[2020-01-27] MEDS: MELATONIN 5 MG TABLETS PO SCH (21:10)
[2020-01-27] MEDS: LIDOCAINE PATCH REMOVAL MC SCH (21:10)
[2020-01-27] MEDS: traZODone HCL 50 MG TABLET (FP) PO SCH (21:10)
[2020-01-28] MEDS: ARTIFICIAL TEARS (POLYVINYL ALCOHOL) OPTH DROPS OU SCH ×3 (06:19→21:39)
[2020-01-28] MEDS: metFORMIN HCL 500 MG TABLET (FP) PO SCH ×2 (07:01→16:32)
[2020-01-28] MEDS: INSULIN SLIDING SCALE (NOVOLOG) 1 VIAL SQ SCH ×2 (07:02→17:09)
[2020-01-28] MEDS: BUDESONIDE/FORMETEROL FUMARATE 80/4.5 mcg INHALER IH SCH ×2 (09:48→21:40)
[2020-01-28] MEDS: PRENATAL VITAMINS W/ FOLIC ACID TABLET (FP) PO SCH (09:48)
[2020-01-28] MEDS: amLODIPine BESYLATE 10 MG TABLET (FP) PO SCH (09:49)
[2020-01-28] MEDS: LACTULOSE 20 GM/30 ML UDC (FOR ORAL USE ONLY) PO SCH ×4 (09:49→21:39)
[2020-01-28] MEDS: ESCITALOPRAM OXALATE 20 MG TABLET PO SCH (09:49)
[2020-01-28] MEDS: LIDOCAINE 5% TOPICAL PATCH TP SCH (09:49)
[2020-01-28] MEDS: NICOTINE 7 MG/24 HOURS TOPICAL PATCH TD SCH (09:49)
[2020-01-28] MEDS: BUPRENORPHINE/NALOXONE 8 MG/2 MG FILM PACKET SL SCH (09:49)
[2020-01-28] MEDS: traZODone HCL 50 MG TABLET (FP) PO SCH (21:39)
[2020-01-28] MEDS: THIAMINE HCL 100 MG TABLET (FP) PO SCH (21:39)
[2020-01-28] MEDS: LIDOCAINE PATCH REMOVAL MC SCH (21:40)
[2020-01-28] MEDS: MELATONIN 5 MG TABLETS PO SCH (21:40)
[2020-01-29] MEDS: ARTIFICIAL TEARS (POLYVINYL ALCOHOL) OPTH DROPS OU SCH ×3 (07:00→21:09)
[2020-01-29] MEDS: metFORMIN HCL 500 MG TABLET (FP) PO SCH ×2 (07:15→16:28)
[2020-01-29] MEDS: INSULIN SLIDING SCALE (NOVOLOG) 1 VIAL SQ SCH ×2 (07:15→16:30)
[2020-01-29] MEDS: LACTULOSE 20 GM/30 ML UDC (FOR ORAL USE ONLY) PO SCH ×4 (09:45→21:08)
[2020-01-29] MEDS: PRENATAL VITAMINS W/ FOLIC ACID TABLET (FP) PO SCH (09:45)
[2020-01-29] MEDS: NICOTINE 7 MG/24 HOURS TOPICAL PATCH TD SCH (09:45)
[2020-01-29] MEDS: BUDESONIDE/FORMETEROL FUMARATE 80/4.5 mcg INHALER IH SCH ×2 (09:46→21:09)
[2020-01-29] MEDS: LIDOCAINE 5% TOPICAL PATCH TP SCH (09:46)
[2020-01-29] MEDS: amLODIPine BESYLATE 10 MG TABLET (FP) PO SCH (09:46)
[2020-01-29] MEDS: BUPRENORPHINE/NALOXONE 8 MG/2 MG FILM PACKET SL SCH (09:46)
[2020-01-29] MEDS: ESCITALOPRAM OXALATE 20 MG TABLET PO SCH (09:46)
[2020-01-29] MEDS ORDERED: INSULIN SLIDING SCALE (NOVOLOG) 1 VIAL SQ ONE (16:28)
[2020-01-29] MEDS: THIAMINE HCL 100 MG TABLET (FP) PO SCH (21:07)
[2020-01-29] MEDS: MELATONIN 5 MG TABLETS PO SCH (21:08)
[2020-01-29] MEDS: traZODone HCL 50 MG TABLET (FP) PO SCH (21:08)
[2020-01-29] MEDS: LIDOCAINE PATCH REMOVAL MC SCH (21:08)
[2020-01-30] MEDS: INSULIN SLIDING SCALE (NOVOLOG) 1 VIAL SQ SCH ×2 (06:18→16:31)
[2020-01-30] MEDS: ARTIFICIAL TEARS (POLYVINYL ALCOHOL) OPTH DROPS OU SCH ×3 (06:18→21:50)
[2020-01-30] MEDS: metFORMIN HCL 500 MG TABLET (FP) PO SCH ×2 (06:18→16:29)
[2020-01-30] MEDS: NICOTINE 7 MG/24 HOURS TOPICAL PATCH TD SCH (09:55)
[2020-01-30] MEDS: LACTULOSE 20 GM/30 ML UDC (FOR ORAL USE ONLY) PO SCH ×4 (09:55→21:50)
[2020-01-30] MEDS: PRENATAL VITAMINS W/ FOLIC ACID TABLET (FP) PO SCH (09:55)
[2020-01-30] MEDS: ESCITALOPRAM OXALATE 20 MG TABLET PO SCH (09:55)
[2020-01-30] MEDS: BUPRENORPHINE/NALOXONE 8 MG/2 MG FILM PACKET SL SCH (09:55)
[2020-01-30] MEDS: LIDOCAINE 5% TOPICAL PATCH TP SCH (09:55)
[2020-01-30] MEDS: amLODIPine BESYLATE 10 MG TABLET (FP) PO SCH (09:56)
[2020-01-30] MEDS: BUDESONIDE/FORMETEROL FUMARATE 80/4.5 mcg INHALER IH SCH ×2 (09:56→21:50)
[2020-01-30] MEDS: THIAMINE HCL 100 MG TABLET (FP) PO SCH (21:49)
[2020-01-30] MEDS: traZODone HCL 50 MG TABLET (FP) PO SCH (21:49)
[2020-01-30] MEDS: LIDOCAINE PATCH REMOVAL MC SCH (21:50)
[2020-01-30] MEDS: MELATONIN 5 MG TABLETS PO SCH (21:50)
[2020-01-31] MEDS: ARTIFICIAL TEARS (POLYVINYL ALCOHOL) OPTH DROPS OU SCH ×3 (06:12→21:10)
[2020-01-31] MEDS: INSULIN SLIDING SCALE (NOVOLOG) 1 VIAL SQ SCH ×2 (06:45→17:03)
[2020-01-31] MEDS: metFORMIN HCL 500 MG TABLET (FP) PO SCH ×2 (06:45→17:01)
[2020-01-31] MEDS: ESCITALOPRAM OXALATE 20 MG TABLET PO SCH (09:57)
[2020-01-31] MEDS: PRENATAL VITAMINS W/ FOLIC ACID TABLET (FP) PO SCH (09:57)
[2020-01-31] MEDS: BUDESONIDE/FORMETEROL FUMARATE 80/4.5 mcg INHALER IH SCH ×2 (09:57→21:11)
[2020-01-31] MEDS: amLODIPine BESYLATE 10 MG TABLET (FP) PO SCH (09:57)
[2020-01-31] MEDS: LACTULOSE 20 GM/30 ML UDC (FOR ORAL USE ONLY) PO SCH ×4 (09:57→21:12)
[2020-01-31] MEDS: LIDOCAINE 5% TOPICAL PATCH TP SCH (09:58)
[2020-01-31] MEDS: NICOTINE 7 MG/24 HOURS TOPICAL PATCH TD SCH (09:58)
[2020-01-31] MEDS: BUPRENORPHINE/NALOXONE 8 MG/2 MG FILM PACKET SL SCH (09:58)
[2020-01-31] MEDS ORDERED: PT OWN MED DRAWER 7, Y5N ONE (13:13)
[2020-01-31] MEDS ORDERED: INSULIN SLIDING SCALE (NOVOLOG) 1 VIAL SQ ONE (17:01)
[2020-01-31] MEDS: THIAMINE HCL 100 MG TABLET (FP) PO SCH (21:10)
[2020-01-31] MEDS: MELATONIN 5 MG TABLETS PO SCH (21:10)
[2020-01-31] MEDS: traZODone HCL 50 MG TABLET (FP) PO SCH (21:10)
[2020-01-31] MEDS: LIDOCAINE PATCH REMOVAL MC SCH (21:10)
[2020-02-01] MEDS: ARTIFICIAL TEARS (POLYVINYL ALCOHOL) OPTH DROPS OU SCH ×3 (06:00→21:45)
[2020-02-01] MEDS: INSULIN SLIDING SCALE (NOVOLOG) 1 VIAL SQ SCH ×2 (07:03→16:36)
[2020-02-01] MEDS: metFORMIN HCL 500 MG TABLET (FP) PO SCH ×2 (07:03→16:36)
[2020-02-01] MEDS: LACTULOSE 20 GM/30 ML UDC (FOR ORAL USE ONLY) PO SCH ×4 (10:05→21:45)
[2020-02-01] MEDS: BUPRENORPHINE/NALOXONE 8 MG/2 MG FILM PACKET SL SCH (10:05)
[2020-02-01] MEDS: PRENATAL VITAMINS W/ FOLIC ACID TABLET (FP) PO SCH (10:05)
[2020-02-01] MEDS: LIDOCAINE 5% TOPICAL PATCH TP SCH (10:06)
[2020-02-01] MEDS: amLODIPine BESYLATE 10 MG TABLET (FP) PO SCH (10:06)
[2020-02-01] MEDS: NICOTINE 7 MG/24 HOURS TOPICAL PATCH TD SCH (10:06)
[2020-02-01] MEDS: ESCITALOPRAM OXALATE 20 MG TABLET PO SCH (10:06)
[2020-02-01] MEDS: BUDESONIDE/FORMETEROL FUMARATE 80/4.5 mcg INHALER IH SCH ×2 (10:09→21:45)
[2020-02-01] MEDS ORDERED: INSULIN SLIDING SCALE (NOVOLOG) 1 VIAL SQ ONE (17:06)
[2020-02-01] MEDS: LIDOCAINE PATCH REMOVAL MC SCH (21:45)
[2020-02-01] MEDS: MELATONIN 5 MG TABLETS PO SCH (21:45)
[2020-02-01] MEDS: THIAMINE HCL 100 MG TABLET (FP) PO SCH (21:45)
[2020-02-01] MEDS: traZODone HCL 50 MG TABLET (FP) PO SCH (21:45)
[2020-02-02] MEDS: ARTIFICIAL TEARS (POLYVINYL ALCOHOL) OPTH DROPS OU SCH ×3 (06:08→21:10)
[2020-02-02] MEDS: metFORMIN HCL 500 MG TABLET (FP) PO SCH ×2 (07:15→16:29)
[2020-02-02] MEDS ORDERED: INSULIN SLIDING SCALE (NOVOLOG) 1 VIAL SQ ONE (07:16)
[2020-02-02] MEDS: INSULIN SLIDING SCALE (NOVOLOG) 1 VIAL SQ SCH ×2 (07:16→16:30)
[2020-02-02] MEDS: PRENATAL VITAMINS W/ FOLIC ACID TABLET (FP) PO SCH (09:34)
[2020-02-02] MEDS: ESCITALOPRAM OXALATE 20 MG TABLET PO SCH (09:34)
[2020-02-02] MEDS: BUPRENORPHINE/NALOXONE 8 MG/2 MG FILM PACKET SL SCH (09:34)
[2020-02-02] MEDS: NICOTINE 7 MG/24 HOURS TOPICAL PATCH TD SCH (09:34)
[2020-02-02] MEDS: amLODIPine BESYLATE 10 MG TABLET (FP) PO SCH (09:34)
[2020-02-02] MEDS: LACTULOSE 20 GM/30 ML UDC (FOR ORAL USE ONLY) PO SCH ×4 (09:34→21:08)
[2020-02-02] MEDS: LIDOCAINE 5% TOPICAL PATCH TP SCH (09:36)
[2020-02-02] MEDS: BUDESONIDE/FORMETEROL FUMARATE 80/4.5 mcg INHALER IH SCH ×2 (10:45→21:10)
[2020-02-02] MEDS: THIAMINE HCL 100 MG TABLET (FP) PO SCH (21:08)
[2020-02-02] MEDS: traZODone HCL 50 MG TABLET (FP) PO SCH (21:09)
[2020-02-02] MEDS: MELATONIN 5 MG TABLETS PO SCH (21:09)
[2020-02-02] MEDS: LIDOCAINE PATCH REMOVAL MC SCH (21:09)
[2020-02-03] MEDS: ARTIFICIAL TEARS (POLYVINYL ALCOHOL) OPTH DROPS OU SCH ×3 (06:27→21:43)
[2020-02-03] MEDS: metFORMIN HCL 500 MG TABLET (FP) PO SCH ×2 (07:10→16:31)
[2020-02-03] MEDS: INSULIN SLIDING SCALE (NOVOLOG) 1 VIAL SQ SCH ×2 (07:10→16:34)
[2020-02-03] MEDS: LACTULOSE 20 GM/30 ML UDC (FOR ORAL USE ONLY) PO SCH ×4 (09:44→21:42)
[2020-02-03] MEDS: LIDOCAINE 5% TOPICAL PATCH TP SCH (09:44)
[2020-02-03] MEDS: ESCITALOPRAM OXALATE 20 MG TABLET PO SCH (09:44)
[2020-02-03] MEDS: PRENATAL VITAMINS W/ FOLIC ACID TABLET (FP) PO SCH (09:44)
[2020-02-03] MEDS: amLODIPine BESYLATE 10 MG TABLET (FP) PO SCH (09:44)
[2020-02-03] MEDS: NICOTINE 7 MG/24 HOURS TOPICAL PATCH TD SCH (09:44)
[2020-02-03] MEDS: BUPRENORPHINE/NALOXONE 8 MG/2 MG FILM PACKET SL SCH (09:44)
[2020-02-03] MEDS: BUDESONIDE/FORMETEROL FUMARATE 80/4.5 mcg INHALER IH SCH ×2 (09:47→21:43)
[2020-02-03] MEDS: THIAMINE HCL 100 MG TABLET (FP) PO SCH (21:42)
[2020-02-03] MEDS: traZODone HCL 50 MG TABLET (FP) PO SCH (21:42)
[2020-02-03] MEDS: MELATONIN 5 MG TABLETS PO SCH (21:43)
[2020-02-03] MEDS: LIDOCAINE PATCH REMOVAL MC SCH (21:43)
[2020-02-04] MEDS: ARTIFICIAL TEARS (POLYVINYL ALCOHOL) OPTH DROPS OU SCH ×3 (06:26→21:10)
[2020-02-04] MEDS: metFORMIN HCL 500 MG TABLET (FP) PO SCH ×2 (06:26→16:25)
[2020-02-04] MEDS: INSULIN SLIDING SCALE (NOVOLOG) 1 VIAL SQ SCH ×2 (06:27→16:27)
[2020-02-04] MEDS: amLODIPine BESYLATE 10 MG TABLET (FP) PO SCH (09:48)
[2020-02-04] MEDS: ESCITALOPRAM OXALATE 20 MG TABLET PO SCH (09:48)
[2020-02-04] MEDS: NICOTINE 7 MG/24 HOURS TOPICAL PATCH TD SCH (09:48)
[2020-02-04] MEDS: PRENATAL VITAMINS W/ FOLIC ACID TABLET (FP) PO SCH (09:48)
[2020-02-04] MEDS: LACTULOSE 20 GM/30 ML UDC (FOR ORAL USE ONLY) PO SCH ×4 (09:48→21:09)
[2020-02-04] MEDS: BUPRENORPHINE/NALOXONE 8 MG/2 MG FILM PACKET SL SCH (09:48)
[2020-02-04] MEDS: BUDESONIDE/FORMETEROL FUMARATE 80/4.5 mcg INHALER IH SCH ×2 (09:48→21:10)
[2020-02-04] MEDS: LIDOCAINE 5% TOPICAL PATCH TP SCH (09:48)
[2020-02-04] MEDS ORDERED: INSULIN (NOVOLOG) ASPART 100 UNITS/ML 10ML VIAL ONE (16:25)
[2020-02-04] MEDS: THIAMINE HCL 100 MG TABLET (FP) PO SCH (21:09)
[2020-02-04] MEDS: traZODone HCL 50 MG TABLET (FP) PO SCH (21:09)
[2020-02-04] MEDS: MELATONIN 5 MG TABLETS PO SCH (21:09)
[2020-02-04] MEDS: LIDOCAINE PATCH REMOVAL MC SCH (21:09)
[2020-02-05] MEDS: metFORMIN HCL 500 MG TABLET (FP) PO SCH ×2 (06:27→17:21)
[2020-02-05] MEDS: INSULIN SLIDING SCALE (NOVOLOG) 1 VIAL SQ SCH ×2 (06:27→17:19)
[2020-02-05] MEDS: ARTIFICIAL TEARS (POLYVINYL ALCOHOL) OPTH DROPS OU SCH ×3 (06:27→21:15)
[2020-02-05] MEDS: BUDESONIDE/FORMETEROL FUMARATE 80/4.5 mcg INHALER IH SCH ×2 (10:12→21:17)
[2020-02-05] MEDS: ESCITALOPRAM OXALATE 20 MG TABLET PO SCH (10:12)
[2020-02-05] MEDS: amLODIPine BESYLATE 10 MG TABLET (FP) PO SCH (10:12)
[2020-02-05] MEDS: LACTULOSE 20 GM/30 ML UDC (FOR ORAL USE ONLY) PO SCH ×4 (10:12→21:15)
[2020-02-05] MEDS: LIDOCAINE 5% TOPICAL PATCH TP SCH (10:12)
[2020-02-05] MEDS: BUPRENORPHINE/NALOXONE 8 MG/2 MG FILM PACKET SL SCH (10:12)
[2020-02-05] MEDS: NICOTINE 7 MG/24 HOURS TOPICAL PATCH TD SCH (10:13)
[2020-02-05] MEDS: PRENATAL VITAMINS W/ FOLIC ACID TABLET (FP) PO SCH (10:17)
[2020-02-05] MEDS: THIAMINE HCL 100 MG TABLET (FP) PO SCH (21:16)
[2020-02-05] MEDS: LIDOCAINE PATCH REMOVAL MC SCH (21:16)
[2020-02-05] MEDS: MELATONIN 5 MG TABLETS PO SCH (21:16)
[2020-02-05] MEDS: traZODone HCL 50 MG TABLET (FP) PO SCH (21:16)
[2020-02-06] MEDS: ARTIFICIAL TEARS (POLYVINYL ALCOHOL) OPTH DROPS OU SCH ×3 (06:29→21:59)
[2020-02-06] MEDS: metFORMIN HCL 500 MG TABLET (FP) PO SCH ×2 (07:05→17:30)
[2020-02-06] MEDS: INSULIN SLIDING SCALE (NOVOLOG) 1 VIAL SQ SCH ×2 (07:05→17:30)
[2020-02-06] MEDS: LIDOCAINE 5% TOPICAL PATCH TP SCH (09:55)
[2020-02-06] MEDS: LACTULOSE 20 GM/30 ML UDC (FOR ORAL USE ONLY) PO SCH ×4 (09:55→22:00)
[2020-02-06] MEDS: PRENATAL VITAMINS W/ FOLIC ACID TABLET (FP) PO SCH (09:55)
[2020-02-06] MEDS: BUDESONIDE/FORMETEROL FUMARATE 80/4.5 mcg INHALER IH SCH ×2 (09:55→22:01)
[2020-02-06] MEDS: ESCITALOPRAM OXALATE 20 MG TABLET PO SCH (09:55)
[2020-02-06] MEDS: amLODIPine BESYLATE 10 MG TABLET (FP) PO SCH (09:55)
[2020-02-06] MEDS: BUPRENORPHINE/NALOXONE 8 MG/2 MG FILM PACKET SL SCH (09:55)
[2020-02-06] MEDS: NICOTINE 7 MG/24 HOURS TOPICAL PATCH TD SCH (09:56)
[2020-02-06] MEDS ORDERED: INSULIN (NOVOLOG) ASPART 100 UNITS/ML 10ML VIAL ONE (17:57)
[2020-02-06] MEDS: traZODone HCL 50 MG TABLET (FP) PO SCH (22:00)
[2020-02-06] MEDS: THIAMINE HCL 100 MG TABLET (FP) PO SCH (22:01)
[2020-02-06] MEDS: LIDOCAINE PATCH REMOVAL MC SCH (22:01)
[2020-02-06] MEDS: MELATONIN 5 MG TABLETS PO SCH (22:01)
[2020-02-07] MEDS: ARTIFICIAL TEARS (POLYVINYL ALCOHOL) OPTH DROPS OU SCH ×3 (06:00→21:30)
[2020-02-07] MEDS: INSULIN SLIDING SCALE (NOVOLOG) 1 VIAL SQ SCH ×2 (07:08→16:48)
[2020-02-07] MEDS: metFORMIN HCL 500 MG TABLET (FP) PO SCH ×2 (07:08→16:50)
[2020-02-07] MEDS: BUPRENORPHINE/NALOXONE 8 MG/2 MG FILM PACKET SL SCH (10:01)
[2020-02-07] MEDS: amLODIPine BESYLATE 10 MG TABLET (FP) PO SCH (10:01)
[2020-02-07] MEDS: NICOTINE 7 MG/24 HOURS TOPICAL PATCH TD SCH (10:01)
[2020-02-07] MEDS: PRENATAL VITAMINS W/ FOLIC ACID TABLET (FP) PO SCH (10:01)
[2020-02-07] MEDS: ESCITALOPRAM OXALATE 20 MG TABLET PO SCH (10:01)
[2020-02-07] MEDS: LACTULOSE 20 GM/30 ML UDC (FOR ORAL USE ONLY) PO SCH ×4 (10:01→21:30)
[2020-02-07] MEDS: BUDESONIDE/FORMETEROL FUMARATE 80/4.5 mcg INHALER IH SCH ×2 (10:02→21:30)
[2020-02-07] MEDS: LIDOCAINE 5% TOPICAL PATCH TP SCH (10:02)
[2020-02-07] MEDS ORDERED: INSULIN (NOVOLOG) ASPART 100 UNITS/ML 10ML VIAL ONE (16:43)
[2020-02-07] MEDS: traZODone HCL 50 MG TABLET (FP) PO SCH (21:30)
[2020-02-07] MEDS: MELATONIN 5 MG TABLETS PO SCH (21:30)
[2020-02-07] MEDS: LIDOCAINE PATCH REMOVAL MC SCH (21:31)
[2020-02-07] MEDS: THIAMINE HCL 100 MG TABLET (FP) PO SCH (21:31)
[2020-02-08] MEDS: metFORMIN HCL 500 MG TABLET (FP) PO SCH (06:16)
[2020-02-08] MEDS ORDERED: PT OWN MED DRAWER 7, Y5N ONE (06:16)
[2020-02-08] MEDS: INSULIN SLIDING SCALE (NOVOLOG) 1 VIAL SQ SCH (06:16)
[2020-02-08] MEDS: ARTIFICIAL TEARS (POLYVINYL ALCOHOL) OPTH DROPS OU SCH (06:18)
[2020-02-08] MEDS ORDERED: ESCITALOPRAM OXALATE 10 MG TABLET ONE (08:43)
[2020-02-08 08:59] VITALS: BP 99/59; PULSE 98; TEMP 96
--- NOTE | 2020-02-08 09:14 | DS ---
[facility] Rehab Discharge Summary - [facility] Rehab Discharge Summary Admission Date: 01/12/20 Discharge Date: 02/08/20 - History Present History: Alcohol dependence, Opioid dependence - Discharge Physical Exam Vital Signs: Vital Signs Temperature 96 F L 02/08/20 08:52 Pulse Rate 98 H 02/08/20 08:52 Respiratory Rate 16 02/08/20 08:52 Blood Pressure 99/59 L 02/08/20 08:52 O2 Sat by Pulse Oximetry (%) 96 02/08/20 06:08 ROS: denies opiod/etoh cravings, shakes, sweats and body aches. PE: alert and oriented x 3 skin warm and dry car s1s2 resp cta bl ext full rom, amb ad dorothy no tremors denies si/hi A/P: Opiod dependence ETOH dependence Patient is medically stable for d/c aftercare arranged for follow up with [facility] [place] with Dr. Keys Patient states he has medication at home including suboxone and refused prescriptions - Treatment Discharge Condition: Discharge condition good, Rehabilitated safely, Responded well, Outpatient referral accepted Hospital Course: Patient discharged from rehab today for alcohol dependence. He is medically stable and denies SI/HI. During course of treatment, patient attended group mariah jackie and 1:1 sessions with counseling staff. Aftercare arranged for him to return to [facility] at [place]. Patient prefers to make his own appt and states he has all medications at home, including suboxone. Patient medically advised to follow up with PCP as recommended and to continue with treatment at [facility] to prevent relapse. Ambulatory Orders Acetaminophen [Tylenol .Extra-Strength -] 500 mg PO Q4H PRN 01/08/20 Albuterol Sulfate Inhaler - [Ventolin HFA Inhaler -] 2 inh PO Q4H PRN 01/08/20 Amlodipine Besylate [Norvasc -] 10 mg PO DAILY 01/08/20 Budesonide/Formoterol Fumarate [Budesonide-Formoterol 80-4.5] 10.2 gm IH BID 01/08/20 Buprenorphine HCl/Naloxone HCl [Buprenorp-Nalox 8-2 mg Sl Film] 2 each SL DAILY 01/08/20 Escitalopram Oxalate [Lexapro -] 20 mg PO DAILY 01/08/20 Multivitamin with Iron [Daily Castro with Iron] 1 each PO DAILY 01/08/20 Propylene Glycol [Systane Complete] 1.5 ml OP BID 01/08/20 traZODone HCL [Trazodone HCl] 50 mg PO HS 01/08/20 Lactulose (Oral Use) [Cephulac -] 20 gm PO BID 7 Days #1 bottle 02/08/20 - Medication Discharge Medications: Ambulatory Orders Acetaminophen [Tylenol .Extra-Strength -] 500 mg PO Q4H PRN 01/08/20 Albuterol Sulfate Inhaler - [Ventolin HFA Inhaler -] 2 inh PO Q4H PRN 01/08/20 Amlodipine Besylate [Norvasc -] 10 mg PO DAILY 01/08/20 Budesonide/Formoterol Fumarate [Budesonide-Formoterol 80-4.5] 10.2 gm IH BID 01/08/20 Buprenorphine HCl/Naloxone HCl [Buprenorp-Nalox 8-2 mg Sl Film] 2 each SL DAILY 01/08/20 Escitalopram Oxalate [Lexapro -] 20 mg PO DAILY 01/08/20 Multivitamin with Iron [Daily Castor with Iron] 1 each PO DAILY 01/08/20 Propylene Glycol [Systane Complete] 1.5 ml OP BID 01/08/20 traZODone HCL [Trazodone HCl] 50 mg PO HS 01/08/20 Lactulose (Oral Use) [Cephulac -] 20 gm PO BID 7 Days #1 bottle 02/08/20 - Medication-Assisted Treatment (MAT) Medication-Assisted Treatment (MAT): Yes Medication Prescribed: Suboxone MAT Follow-up Referral: [facility] [place], patient prefers to make own appt with Dr. Keys. - Discharge Instructions Diet, activity, other medical instructions: Diet: NCS as denise Activity: amb ad dorothy as denise Other medical instructions: f/u with pcp as recommended - Follow-up Referral Minutes to complete discharge: 40 - AMA Did Patient Leave Against Medical Advice: No
[2020-02-08] MEDS: PRENATAL VITAMINS W/ FOLIC ACID TABLET (FP) PO SCH (09:39)
[2020-02-08] MEDS: NICOTINE 7 MG/24 HOURS TOPICAL PATCH TD SCH (09:40)
[2020-02-08] MEDS: amLODIPine BESYLATE 10 MG TABLET (FP) PO SCH (09:40)
[2020-02-08] MEDS: LIDOCAINE 5% TOPICAL PATCH TP SCH (09:40)
[2020-02-08] MEDS: LACTULOSE 20 GM/30 ML UDC (FOR ORAL USE ONLY) PO SCH (09:40)
[2020-02-08] MEDS: ESCITALOPRAM OXALATE 20 MG TABLET PO SCH (09:40)
[2020-02-08] MEDS: BUPRENORPHINE/NALOXONE 8 MG/2 MG FILM PACKET SL SCH (09:40)
== END 2020-02-08 10:10 | disposition home or self-care (01) | DRG 895 ==
LOC: YASAS 13:20 → Y3W 13:25
PROVIDERS: ADMIT Allergy & Immunology; ATTEND Allergy & Immunology
PROC: HZ42ZZZ Group Counseling for Substance Abuse Treatment, Cognitive-Behavioral (ICD-10-PCS; principal; 2020-01-12)
DX: F10.20 Alcohol dependence, uncomplicated (principal); F11.20 Opioid dependence, uncomplicated; E72.20 Disorder of urea cycle metabolism, unspecified; F12.20 Cannabis dependence, uncomplicated; F17.210 Nicotine dependence, cigarettes, uncomplicated; E78.5 Hyperlipidemia, unspecified; I10 Essential (primary) hypertension; J45.909 Unspecified asthma, uncomplicated; M25.522 Pain in left elbow; M25.511 Pain in right shoulder; M25.552 Pain in left hip; W06.XXXA Fall from bed, initial encounter; Y93.89 Activity, other specified; Y92.230 Patient room in hospital as the place of occurrence of the external cause; Y99.8 Other external cause status; Z87.11 Personal history of peptic ulcer disease; Z85.038 Personal history of other malignant neoplasm of large intestine; R73.9 Hyperglycemia, unspecified; R26.89 Other abnormalities of gait and mobility; Z99.89 Dependence on other enabling machines and devices
CPT/HCPCS: 36415; 73070-TC-LT-FY; 82140; 82962; 84550; 90732; G0009

== ENCOUNTER 2020-01-12 17:13 | Emergency (ER) | payer OTHER ==
[2020-01-12 17:21] VITALS: BMI 24.7
--- NOTE | 2020-01-12 18:39 | PDOC ---
History of Present Illness - General Chief Complaint: Injury Stated Complaint: FALL Time Seen by Provider: 01/12/20 17:20 - History of Present Illness Initial Comments: HPI: 64 yo M HTN, mild intermittent asthma, alcohol abuse, remote hx of prescription opiate abuse (percocet abuse 15 years ago; on suboxone), rectal ca (in 1992; pt states polyps were removed), and b/l knee replacement presenting [facility] from [facility] after an unwitnessed mechanical fall. Pt stated that he stood up, felt weakness in his legs and fell on his L buttock when he tried to take a few steps. Pain was 7/10 and nonradiating immediately after the fall and pain mostly resolved with taking Motrin at [facility]. Pt notes that pain is still present with pressure or palpation of the L buttock area. Pt denies LOC, head trauma, trauma to any other area of the body, CP, SOB, nausea, vomiting, dizziness, diarrhea, constipation, fevers, chills, tremors, anxiety, or agitation. Pt sent from [facility] to obtain CT scan of head. PMHX: as in HPI PSHX: as in HPI Meds: Acetaminophen [Tylenol -] 500 mg PO Q4H PRN 01/08/20 Albuterol Sulfate Inhaler - [Ventolin Hfa Inhaler -] 2 inh PO Q4H PRN 01/08/20 Amlodipine Besylate [Norvasc -] 10 mg PO DAILY 01/08/20 Budesonide/Formoterol Fumarate [Budesonide-Formoterol 80-4.5] 10.2 gm IH BID 01/08/20 Buprenorphine HCl/Naloxone HCl [Buprenorp-Nalox 8-2 mg Sl Film] 2 each SL DAILY 01/08/20 Escitalopram Oxalate [Lexapro -] 20 mg PO DAILY 01/08/20 Multivitamin with Iron [Daily Castro with Iron] 1 each PO DAILY 01/08/20 Propylene Glycol [Systane Complete] 1.5 ml OP BID 01/08/20 traZODone HCL [Trazodone HCl] 50 mg PO HS 01/08/20 Allergies: nkda Tob: 0.5 ppd x 2 years Etoh: 2 pints of Bicardi daily Rec drugs: Marijuana - 1 jt daily PCP: at [facility] GENERAL/CONSTITUTIONAL: No fever or chills. No weakness. HEAD, EYES, EARS, NOSE AND THROAT: No change in vision. No ear pain or discharge. No sore throat. CARDIOVASCULAR: No chest pain or shortness of breath RESPIRATORY: No cough, wheezing, or hemoptysis. GASTROINTESTINAL: No nausea, vomiting, diarrhea or constipation. GENITOURINARY: No dysuria, frequency, or change in urination. MUSCULOSKELETAL: No joint or muscle swelling or pain. No neck or back pain.+Buttock pain after fall SKIN: No rash NEUROLOGIC: No headache, vertigo, loss of consciousness, or change in strength/sensation. ENDOCRINE: No increased thirst. No abnormal weight change HEMATOLOGIC/LYMPHATIC: No anemia, easy bleeding, or history of blood clots. ALLERGIC/IMMUNOLOGIC: No hives or skin allergy. PE GENERAL: Awake, alert, and fully oriented, in no acute distress HEAD: No signs of trauma, normocephalic, atraumatic EYES: PERRLA, EOMI, sclera anicteric, conjunctiva clear ENT: Auricles normal inspection, hearing grossly normal, nares patent, orop harynx clear without exudates. Moist mucosa NECK: Normal ROM, supple, no lymphadenopathy, JVD, or masses LUNGS: No distress, speaks full sentences, clear to auscultation bilaterally HEART: Regular rate and rhythm, normal S1 and S2, no murmurs, rubs or gallops, peripheral pulses normal and equal bilaterally. ABDOMEN: Soft, nontender, normoactive bowel sounds. EXTREMITIES : Normal inspection, Normal range of motion, no edema. No clubbing or cyanosis. NEUROLOGICAL: 5/5 strength in all extremities bilaterally; sensation to light touch intact; DTRs intact and symmetric; CN2-12 intact; Normal speech, normal gait, no focal sensorimotor deficits SKIN: Warm, Dry, normal turgor, no rashes or lesions noted CIWA Score 0 01/12/20 19:11 Past History - Medical History Allergies/Adverse Reactions: Allergies Allergy/AdvReac Type Severity Reaction Status Date / Time No Known Allergies Allergy Verified 01/09/20 15:30 Home Medications: Ambulatory Orders Acetaminophen [Tylenol .Extra-Strength -] 500 mg PO Q4H PRN 01/08/20 Albuterol Sulfate Inhaler - [Ventolin HFA Inhaler -] 2 inh PO Q4H PRN 01/08/20 Amlodipine Besylate [Norvasc -] 10 mg PO DAILY 01/08/20 Budesonide/Formoterol Fumarate [Budesonide-Formoterol 80-4.5] 10.2 gm IH BID 01/08/20 Buprenorphine HCl/Naloxone HCl [Buprenorp-Nalox 8-2 mg Sl Film] 2 each SL DAILY 01/08/20 Escitalopram Oxalate [Lexapro -] 20 mg PO DAILY 01/08/20 Multivitamin with Iron [Daily Castro with Iron] 1 each PO DAILY 01/08/20 Propylene Glycol [Systane Complete] 1.5 ml OP BID 01/08/20 traZODone HCL [Trazodone HCl] 50 mg PO HS 01/08/20 Asthma: Yes Cardiac Disorders: No COPD: No Diabetes: Yes GI Disorders: No Disorders: No HTN: Yes Kidney Stones: No Seizures: No - Surgical History Abdominal Surgery: No Appendectomy: No Cardiac Surgery: No Cholecystectomy: No Lung Surgery: No Neurologic Surgery: No Orthopedic Surgery: Yes (R knee replacement) - Reproductive History Testicular Surgery: No - Immunization History Immunization Up to Date: No - Psycho-Social/Smoking History Smoking History: Current every day smoker Have you smoked in the past 12 months: Yes Number of Cigarettes Smoked Daily: 10 Information on smoking cessation initiated: No - Substance Abuse Hx (Audit-C & DAST Scrn) How often the patient has a drink containing alcohol: 2-3 times / week Number of drinks the patient has on a typical day: 3 or 4 How often the patient has six or more drinks on one occasion: Never Score: In Men: 4 or > Positive; In Women: 3 or > Positive: 4 Screen Result (Pos requires Nsg. Audit-10AR): Positive In the last yr the pt used illegal drug/Rx for NonMed reason: Yes Score: Yes response is considered Positive: 1 Screen Result (Positive result requires Nsg. 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 DDX including but not limited to: likely mechanical fall W/U: -CT head with no acute intracranial pathology -Pelic/Hip Xray with no acute fracture or pathology 01/12/20 19:07 Patient stable for discharge back to [facility]. Informed of all lab and imaging results. Given follow up instructions and strict return precautions. Patient expressed understanding and agree to plan 01/12/20 19:29 Discharge - Discharge Information Problems reviewed: Yes Clinical Impression/Diagnosis: Fall Qualifiers: Encounter type: initial encounter Qualified Code(s): W19.XXXA - Unspecified fall, initial encounter Condition: Good Disposition: HOME - Follow up/Referral - Patient Discharge Instructions Patient Printed Discharge Instructions: How to Prevent Falls Additional Instructions: You came here after a fall onto your L buttock. You were evaluated with a hip/pelvis XRay and CT scan of the head which showed no concerning findings. Please return to the ED if you have another fall, significantly worsening gait instability, or loss of consciousness. - Post Discharge Activity
--- NOTE | 2020-01-12 18:52 | PDOC ---
Documentation entered by Pooja Negro SCRIBE, acting as scribe for Ramon Medina MD. Ramon Medina MD: This documentation has been prepared by the Marky samayoa Sydney, SCRIBE, under my direction and personally reviewed by me in its entirety. I confirm that the documentation accurately reflects all work, treatment, procedures, and medical decision making performed by me. Attending Attestation - Resident Resident Name: Argelia,Yashgulshan - ED Attending Attestation I have performed the following: I have examined & evaluated the patient, The case was reviewed & discussed with the resident, I agree w/resident's findings & plan, Exceptions are as noted - HPI HPI: 01/12/20 18:53 64 years old past medical history significant for alcohol abuse bilateral knee replacements unwitnessed fall stating he stood up felt weak fell on his buttocks denies any head trauma sent to ED for CAT scan able to ambulate comfortably around the emergency department - Physicial Exam PE: 01/12/20 18:53 Vitals: Triage Vital signs reviewed General Appearance: No acute distress, well nourished well developed, Head: Atraumatic, Eyes: Pupils equal reactive round, extraocular movement intact Cardiac: Regular rate and rhythym, no murmurs, no rubs, no gallops, Lungs: Clear to auscultation bilateral, good air movement bilaterally, Abdomen: Soft, non distended, normal bowel sounds, non tender to palpation Extremities: Full range of motion to all extremities, no cyanosis, clubbing, or edema Skin: Warm and dry, no rashes or lesions, no rash, no petechiae Psych: Normal mood, normal affect - Medical Decision Making 01/12/20 18:54 Well-appearing no apparent distress sent to ED for head CT secondary to fall protocol Able to ambulate comfortably no significant pain normal neurologic examination will head CT and reassess Dr. Irvin to follow up results and reasses patient Discharge - Discharge Information Problems reviewed: Yes Clinical Impression/Diagnosis: Fall Qualifiers: Encounter type: initial encounter Qualified Code(s): W19.XXXA - Unspecified fall, initial encounter - Follow up/Referral - Patient Discharge Instructions - Post Discharge Activity
[2020-01-12 19:00] VITALS: BP 125/62; PULSE 67; TEMP 97.6
--- NOTE | 2020-01-13 10:55 | CONSULT ---
[facility] Psychiatric Consult - Data Date of interview: 01/13/20 Admission source: [facility] Identifying data: Patient is a 64 year old male, without children, unemployed (retired), and is supported by [facility]. This is patient's first admission to rehab at [facility]. Patient admitted to [facility] rehab for treatment of alcohol dependence. Substance Abuse History: Smoking Cessation. Smoking history: Current every day smoker. Hx Chewing Tobacco Use: No. Initiated information on smoking cessation: Yes. 'Breaking Loose' booklet given: 01/08/20. - Substances abused. Alcohol. Substance route: Oral. Frequency: Daily. Amount used: 2 PINTS RUM. Age of first use: 8. Date of last use: 01/08/20. Marijuana/Hashish. Substance route: Smoking. Frequency: Daily. Amount used: 1 JOINT. Age of first use: 13. Date of last use: 01/07/20
== END 2020-01-12 20:56 | disposition home or self-care (01) ==
LOC: JER 17:13
DX: M54.5 Low back pain (principal); W19.XXXA Unspecified fall, initial encounter
CPT/HCPCS: 70450-TC; 73523-TC-FY; 99284-25

== ENCOUNTER 2022-05-25 14:03 | Inpatient (IN) | payer OTHER ==
[2022-05-25 16:18] VITALS: BMI 23.9
[2022-05-25] MEDS ORDERED: ONDANSETRON *ODT* 4 MG TABLET SL PRN (19:04)
[2022-05-25] MEDS ORDERED: MAGNESIUM HYDROX 2400MG/30ML ORAL SUSPENSION 30 ML CUP PO PRN (19:04)
[2022-05-25] MEDS ORDERED: IBUPROFEN 400 MG TABLET (FP) PO PRN (19:04)
[2022-05-25] MEDS ORDERED: NICOTINE POLACRILEX 2 MG GUM BUC PRN (19:04)
[2022-05-25] MEDS ORDERED: BISMUTH SUBSALICYLATE 524 MG/30 ML PO PRN (19:04)
[2022-05-25] MEDS ORDERED: BENZOCAINE/MENTHOL (CHLORASEPTIC ) LOZENGE MM PRN (19:04)
[2022-05-25] MEDS ORDERED: NICOTINE 10 MG CARTRIDGE (INHALER) IH PRN (19:04)
[2022-05-25] MEDS ORDERED: NALOXONE HCL (KLOXXADO) 8 MG SPRAY NS PRN (19:04)
[2022-05-25] MEDS ORDERED: POLYETHYLENE GLYCOL (HEALTHYLAX) 3350 17 GM PACKET PO PRN (19:04)
[2022-05-25] MEDS ORDERED: IBUPROFEN 600 MG TABLET (FP) PO PRN (19:04)
[2022-05-25] MEDS ORDERED: ACETAMINOPHEN 325 MG TABLET (FP) PO PRN ×2 (19:04)
[2022-05-25] MEDS ORDERED: METHOCARBAMOL 500 MG TABLET PO PRN (19:04)
[2022-05-25] MEDS ORDERED: DICYCLOMINE HCL 10 MG CAPSULE PO PRN (19:04)
[2022-05-25] MEDS ORDERED: LORazepam 1 MG TABLET ONE (19:13)
[2022-05-25] MEDS ORDERED: LORazepam 1 MG TABLET PO ONE (19:15)
[2022-05-25] MEDS ORDERED: ALBUTEROL SO4 HFA INHALER IH PRN (19:52)
[2022-05-25] MEDS: PRENATAL VITAMINS W/ FOLIC ACID TABLET (FP) PO SCH (20:41)
[2022-05-25] MEDS: SPIRONOLACTONE 25 MG TABLET PO SCH (20:41)
[2022-05-25] MEDS: amLODIPine BESYLATE 10 MG TABLET (FP) PO SCH (20:41)
[2022-05-25] MEDS: BUPRENORPHINE/NALOXONE 8 MG/2 MG FILM PACKET SL SCH (20:42)
[2022-05-25] MEDS: INSULIN SLIDING SCALE (NOVOLOG) 1 VIAL SQ SCH (21:08)
[2022-05-25] MEDS ORDERED: MELATONIN 5 MG TABLETS PO SCH (22:00)
[2022-05-25] MEDS: BUDESONIDE/FORMETEROL FUMARATE 80/4.5 mcg INHALER IH SCH (22:14)
[2022-05-25] MEDS: LORazepam 2 MG TABLET PO SCH (22:14)
[2022-05-25] MEDS: THIAMINE HCL 100 MG TABLET (FP) PO SCH (22:15)
[2022-05-26] MEDS: LORazepam 2 MG TABLET PO SCH ×4 (06:05→22:17)
[2022-05-26] MEDS: INSULIN SLIDING SCALE (NOVOLOG) 1 VIAL SQ SCH ×4 (06:09→22:19)
[2022-05-26] MEDS: BUDESONIDE/FORMETEROL FUMARATE 80/4.5 mcg INHALER IH SCH ×2 (10:16→22:14)
[2022-05-26] MEDS: PRENATAL VITAMINS W/ FOLIC ACID TABLET (FP) PO SCH (10:17)
[2022-05-26] MEDS: amLODIPine BESYLATE 10 MG TABLET (FP) PO SCH (10:17)
[2022-05-26] MEDS: MULTIVITAMINS (DAILY MVI) TABLET (FP) PO SCH (10:17)
[2022-05-26] MEDS: ESCITALOPRAM OXALATE 10 MG TABLET PO SCH (10:18)
[2022-05-26] MEDS: BUPRENORPHINE/NALOXONE 8 MG/2 MG FILM PACKET SL SCH (10:19)
[2022-05-26] MEDS: SPIRONOLACTONE 25 MG TABLET PO SCH (11:16)
[2022-05-26] MEDS: MAG HYDROX/AL HYDROX/SIMETH 30 ML UNIT-DOSE CUP PO PRN (20:05)
[2022-05-26] MEDS: THIAMINE HCL 100 MG TABLET (FP) PO SCH (22:14)
[2022-05-26] MEDS: traZODone HCL 50 MG TABLET (FP) PO SCH (22:16)
[2022-05-27] MEDS: LORazepam 1 MG TABLET PO SCH ×4 (05:08→22:41)
[2022-05-27] MEDS: INSULIN SLIDING SCALE (NOVOLOG) 1 VIAL SQ SCH ×4 (06:12→22:43)
[2022-05-27] MEDS: ESCITALOPRAM OXALATE 10 MG TABLET PO SCH (10:15)
[2022-05-27] MEDS: PRENATAL VITAMINS W/ FOLIC ACID TABLET (FP) PO SCH (10:15)
[2022-05-27] MEDS: SPIRONOLACTONE 25 MG TABLET PO SCH (10:15)
[2022-05-27] MEDS: amLODIPine BESYLATE 10 MG TABLET (FP) PO SCH (10:15)
[2022-05-27] MEDS: MULTIVITAMINS (DAILY MVI) TABLET (FP) PO SCH (10:16)
[2022-05-27] MEDS: BUPRENORPHINE/NALOXONE 8 MG/2 MG FILM PACKET SL SCH (10:16)
[2022-05-27] MEDS: BUDESONIDE/FORMETEROL FUMARATE 80/4.5 mcg INHALER IH SCH ×2 (10:16→22:40)
[2022-05-27 11:21] LABS: HEMATOCRIT 36.1 % (35.4-49); HEMOGLOBIN 12.7 GM/dL (11.7-16.9); MCH 36.2 pg (25.7-33.7); MCHC 35.3 g/dl (32.0-35.9); MEAN CELL VOLUME 102.6 fl (80-96); MEAN PLT VOLUME 8.5 fl (7.5-11.1); PLATELET COUNT 82 10^3/uL (134-434); RBC 3.52 M/mm3 (4.00-5.60); RDW 12.9 % (11.9-15.9)
[2022-05-27 11:31] LABS: CREATININE 0.9 mg/dL (0.55-1.3)
[2022-05-27 11:33] LABS: ALBUMIN 3.1 g/dl (3.4-5.0); BLOOD UREA NITROGEN 13.6 mg/dL (7-18); CALCIUM 9.1 mg/dL (8.5-10.1); TOT PROT 7.5 g/dl (6.4-8.2)
[2022-05-27] MEDS: LACTULOSE 20 GM/30 ML UDC (FOR ORAL USE ONLY) PO SCH ×2 (17:46→22:34)
[2022-05-27] MEDS: LOPERAMIDE HCL 2 MG CAPSULE PO PRN (20:04)
[2022-05-27] MEDS: traZODone HCL 50 MG TABLET (FP) PO SCH (22:40)
[2022-05-27] MEDS: THIAMINE HCL 100 MG TABLET (FP) PO SCH (22:40)
[2022-05-27] MEDS: MAG HYDROX/AL HYDROX/SIMETH 30 ML UNIT-DOSE CUP PO PRN (22:42)
[2022-05-28] MEDS: LORazepam 0.5 MG TABLET PO SCH ×4 (05:54→22:13)
[2022-05-28] MEDS: INSULIN SLIDING SCALE (NOVOLOG) 1 VIAL SQ SCH ×4 (07:00→22:13)
[2022-05-28] MEDS: LOPERAMIDE HCL 2 MG CAPSULE PO PRN (09:06)
[2022-05-28] MEDS: ESCITALOPRAM OXALATE 10 MG TABLET PO SCH (10:47)
[2022-05-28] MEDS: SPIRONOLACTONE 25 MG TABLET PO SCH (10:47)
[2022-05-28] MEDS: PRENATAL VITAMINS W/ FOLIC ACID TABLET (FP) PO SCH (10:47)
[2022-05-28] MEDS: amLODIPine BESYLATE 10 MG TABLET (FP) PO SCH (10:47)
[2022-05-28] MEDS: LACTULOSE 20 GM/30 ML UDC (FOR ORAL USE ONLY) PO SCH ×4 (10:53→22:12)
[2022-05-28] MEDS: BUPRENORPHINE/NALOXONE 8 MG/2 MG FILM PACKET SL SCH (10:53)
[2022-05-28] MEDS: BUDESONIDE/FORMETEROL FUMARATE 80/4.5 mcg INHALER IH SCH ×2 (10:56→22:12)
[2022-05-28] MEDS: MULTIVITAMINS (DAILY MVI) TABLET (FP) PO SCH (12:11)
[2022-05-28 13:15] LABS: CALCIUM 8.8 mg/dL (8.5-10.1)
[2022-05-28 13:16] LABS: BLOOD UREA NITROGEN 18.7 mg/dL (7-18)
[2022-05-28 13:20] LABS: BILIRUBIN,TOTAL 1.2 mg/dL (0.2-1); TOT PROT 7.2 g/dl (6.4-8.2)
[2022-05-28] MEDS: traZODone HCL 50 MG TABLET (FP) PO SCH (22:12)
[2022-05-28] MEDS: THIAMINE HCL 100 MG TABLET (FP) PO SCH (22:13)
[2022-05-29] MEDS ORDERED: LORazepam 0.5 MG TABLET PO ONE (05:00)
[2022-05-29] MEDS: INSULIN SLIDING SCALE (NOVOLOG) 1 VIAL SQ SCH (06:01)
[2022-05-29 09:29] VITALS: BP 114/68; PULSE 95; RESP 16; TEMP 98
== END 2022-05-29 10:15 | disposition home or self-care (01) | DRG 897 ==
LOC: YASAS 14:03 → Y3N 19:56
PROVIDERS: ADMIT Allergy & Immunology; ATTEND Surgery
PROC: HZ2ZZZZ Detoxification Services for Substance Abuse Treatment (ICD-10-PCS; principal; 2022-05-25)
DX: F10.230 Alcohol dependence with withdrawal, uncomplicated (principal); F11.20 Opioid dependence, uncomplicated; E72.20 Disorder of urea cycle metabolism, unspecified; F12.20 Cannabis dependence, uncomplicated; F17.210 Nicotine dependence, cigarettes, uncomplicated; F19.24 Other psychoactive substance dependence with psychoactive substance-induced mood disorder; F32.A Depression, unspecified; D69.6 Thrombocytopenia, unspecified; G47.00 Insomnia, unspecified; E11.65 Type 2 diabetes mellitus with hyperglycemia; Z79.4 Long term (current) use of insulin; I10 Essential (primary) hypertension; R74.01 Elevation of levels of liver transaminase levels; R74.8 Abnormal levels of other serum enzymes; Z86.19 Personal history of other infectious and parasitic diseases; Z96.651 Presence of right artificial knee joint
CPT/HCPCS: 36415; 80053; 82140; 82962; 83036; 85027; 86593; 86780; 87811; C9803-CS; U0003; U0005